=== PATIENT | male | born 1960 | race African-American/Black ===

== ENCOUNTER 2020-11-15 09:29 | Outpatient (REF) | payer OTHER, SELFPAY ==
[2020-11-15 10:01] LABS: Hemoglobin 15.1 g/dl (14.0-18.0); Mean Corpuscular HGB Conc 32.1 g/dl (31.0-36.0); Mean Corpuscular Hemoglobin 28.4 pg (27.0-33.0); Mean Corpuscular Volume 88.5 fL (80-98); Mean Platelet Volume 10.7 fL (9.4-12.4); Platelet Count 349 X10*3/uL (160-400); Red Blood Count 5.31 X10*6/uL (4.60-5.80); Red Cell Distribution Width 14.4 % (11.0-16.0); White Blood Count 11.9 X10*3/uL (4.8-10.8)
[2020-11-15 10:19] LABS: Glucose Urine UA NEG (NEG); Leukocyte Esterase Urine 1+ (NEG); Nitrite Urine NEG (NEG); Specific Gravity - Urine 1.025 (1.005-1.025); UACC Culture Trigger YES; Urine Blood 1+ (NEG); Urine Ketones NEG (NEG); Urine Protein TRACE MG/DL (NEG-TRACE)
[2020-11-15 10:22] LABS: Appearance Urine HAZY; Color Urine YELLOW
[2020-11-15 10:48] LABS: Anion Gap 16 (12-20); Blood Urea Nitrogen 13 mg/dL (9-16); Calcium 9.1 mg/dL (8.4-10.2); Carbon Dioxide 27 mmol/L (22-29); Chloride 103 mmol/L (96-108); Estimated Glomerular Filt Rate > 60; Glucose Random 137 mg/dL (60-115); Sodium 142 mmol/L (135-145)
[2020-11-15 11:06] LABS: Bacteria Urine 1+ /LPF; Mucus Urine 2+ /LPF; Squamous Epithelial Cell Urine TRACE /LPF
[2020-11-15 11:46] LABS: Prostate Specific Antigen Scr 149.95 ng/mL (<0.05-4.0)
== END 2020-11-15 09:30 | disposition home or self-care (01) ==
LOC: HO.LAB 09:29
PROVIDERS: PCP Physician Assistant; Visit Provider Physician Assistant
DX: N41.0 Acute prostatitis (principal); R30.0 Dysuria; I10 Essential (primary) hypertension; Z12.5 Encounter for screening for malignant neoplasm of prostate
CPT/HCPCS: 36415; 80048; 81001; 81003; 84153; 85027; 87086; 87088; 87186

== ENCOUNTER 2020-12-31 10:14 | Outpatient (REF) | payer OTHER, SELFPAY ==
--- NOTE | ~2020-12-31 | XR_ITS ---
EXAMINATION: XR LUMBOSACRAL SPINE CLINICAL INFORMATION: Spondylosis COMPARISON: Previous x-ray March 2018 TECHNIQUE: Three views of the lumbosacral spine. FINDINGS: Bone alignment is normal. No fracture or dislocation is seen. There is degenerative disc disease at L5-S1. There is lower lumbar spine facet arthritis. XR/XR lumbar spine 2-3V IMPRESSION: Degenerative changes.
== END 2020-12-31 10:15 | disposition home or self-care (01) ==
LOC: HO.XRAY 10:14
PROVIDERS: PCP Physician Assistant; Visit Provider Student in an Organized Health Care Education/Training Program
DX: M47.816 Spondylosis without myelopathy or radiculopathy, lumbar region (principal)
CPT/HCPCS: 72100

== ENCOUNTER → 2021-01-09 13:10 | Outpatient (BNVA) | payer OTHER, SELFPAY | PROVIDERS: PCP Physician Assistant; Visit Provider Urology | DX: N41.9 Inflammatory disease of prostate, unspecified (principal) | CPT/HCPCS: 81002; 99212 ==

== ENCOUNTER → 2021-04-18 09:58 | Outpatient (BNVA) | payer OTHER, SELFPAY | PROVIDERS: PCP Physician Assistant; Visit Provider Urology ==

== ENCOUNTER → 2021-05-24 09:35 | Outpatient (BNVA) | payer OTHER, SELFPAY | PROVIDERS: PCP Physician Assistant; Referring Provider Physician Assistant; Visit Provider Nurse Practitioner Family | DX: Z12.11 Encounter for screening for malignant neoplasm of colon (principal); K59.01 Slow transit constipation | CPT/HCPCS: 99202 ==

== ENCOUNTER 2021-06-12 07:34 | Outpatient (REF) | payer OTHER, SELFPAY ==
[2021-06-12 09:18] LABS: Hematocrit 47.9 % (42-52); Hemoglobin 15.6 g/dl (14.0-18.0); Mean Corpuscular HGB Conc 32.6 g/dl (31.0-36.0); Mean Corpuscular Hemoglobin 28.4 pg (27.0-33.0); Mean Corpuscular Volume 87.2 fL (80-98); Mean Platelet Volume 10.7 fL (9.4-12.4); Platelet Count 346 X10*3/uL (160-400); Red Blood Count 5.49 X10*6/uL (4.60-5.80); Red Cell Distribution Width 14.1 % (11.0-16.0); White Blood Count 6.3 X10*3/uL (4.8-10.8)
[2021-06-12 09:44] LABS: Alanine Aminotransferase 33 U/L (0-40); Albumin Level 4.4 g/dL (3.5-5.0); Alkaline Phosphatase 60 U/L (39-117); Anion Gap 12 (12-20); Aspartate Amino Transferase 23 U/L (5-37); Bilirubin Total 0.6 mg/dL (0.0-1.0); Blood Urea Nitrogen 12 mg/dL (9-16); Calcium 10.1 mg/dL (8.4-10.2); Carbon Dioxide 30 mmol/L (22-29); Chloride 105 mmol/L (96-108); Cholesterol 136 mg/dL; Estimated Glomerular Filt Rate > 60; Glucose Fasting 91 mg/dL (60-99); HDL Cholesterol 33 mg/dL; LDL Cholesterol Calculated 68 mg/dl; Potassium 4.9 mmol/L (3.3-5.1); Sodium 142 mmol/L (135-145); Total Protein 7.6 g/dL (6.5-8.0); Triglycerides 175 mg/dL
[2021-06-12 10:01] LABS: TSH reflex Free T4 2.48 uIU/mL (0.32-4.0)
[2021-06-12 10:07] LABS: Estimated Average Glucose 108 mg/dL; Hemoglobin A1c % 5.4 %
[2021-06-12 11:54] LABS: PSA,Total (Free>4and<10) 1.52 ng/mL (0.00-4.00)
== END 2021-06-12 07:35 | disposition home or self-care (01) ==
LOC: HO.LAB 07:34
PROVIDERS: Absent Provider Urology; PCP Physician Assistant; Visit Provider Nurse Practitioner Family
DX: Z12.5 Encounter for screening for malignant neoplasm of prostate (principal); Z13.1 Encounter for screening for diabetes mellitus; Z13.220 Encounter for screening for lipoid disorders; N13.8 Other obstructive and reflux uropathy; I10 Essential (primary) hypertension; M47.816 Spondylosis without myelopathy or radiculopathy, lumbar region; M19.011 Primary osteoarthritis, right shoulder; M19.012 Primary osteoarthritis, left shoulder
CPT/HCPCS: 36415; 80053; 80061; 83036; 84153; 84443; 85027; 99212

== ENCOUNTER → 2021-07-01 08:03 | Outpatient (BNVA) | payer OTHER, SELFPAY | PROVIDERS: PCP Physician Assistant; Visit Provider Nurse Practitioner Family ==

== ENCOUNTER 2021-08-13 11:04 | Day surgery (SDC) | payer OTHER, SELFPAY ==
[2021-08-07 11:53] VITALS: BMI 31.4
--- NOTE | 2021-08-12 09:02 | HO.ANESPROP2 ---
Documented by User: Patty Velasquez NP 08/12/21 09:03 HPI - Anesthesia Eval Consult details Narrative: 60yo M for Colonoscopy PMFSH Active Problems Active Problems: All Active Problems (Updated 08/07/21 @ 11:53 by Betsey Lowry RN) Acute prostatitis (Acute) Lumbar spondylosis (Acute) Prostatitis (Acute) Annual physical exam (Acute) Screening for hypercholesterolemia (Acute) Screening for diabetes mellitus (DM) (Acute) HLD (hyperlipidemia) (Acute) HTN (hypertension) (Acute) Colon cancer screening (Acute) Erectile dysfunction (Acute) Primary osteoarthritis, right shoulder (Acute) Primary osteoarthritis of left shoulder (Acute) Past Medical History Medical History (Updated 08/07/21 @ 11:53 by Betsey Lowry RN) Chronic prostatitis COVID-19 vaccine series completed Elevated cholesterol HTN (hypertension) Other chronic pain Primary osteoarthritis of left shoulder Primary osteoarthritis, right shoulder Skin lesion of back Family History Family History Father History of stomach cancer Mother HTN (hypertension) Diabetes mellitus Surgical History Surgical History (Updated 08/07/21 @ 11:52 by Betsey Lowry RN) Hx of colonoscopy Social History Social History Housing: House Are you a primary vocational childcare teacher to a significant other at home: No Do you presently have visiting nurse or other home services: No Alcohol intake: current Alcohol intake frequency: holidays/special occasions only Patient Tobacco Use Status: Never used Tobacco Use of substances other than those prescribed or required for medical reasons: No Have you been hit, kicked, punched, or otherwise hurt by someone within the past year? If so, by whom?: No Are you DNR?: No Advance Directives: No Advance Directives Information Provided: Yes (informational brochure mailed) Advance Directives on File: No Recently lost weight without trying: No Eating poorly because of decreased appetite: No Nutrition Risks: No Nutritional Risk Poor oral hygiene: No Current occupational status: retired Current occupation: [employer] Allergies Allergy/AdvReac Type Severity Reaction Status Date / Time No Known Allergies Allergy Verified 07/01/21 08:03 [No Known Allergies*] Exam Exam Date and Time: August 12, 2021 0902 Height,Weight and Vital Signs: Height 5 ft 11 in Weight 102.058 kg Assessment and Plan Assessment Anesthesia Assessment: Chart Reviewed Documented by User: Ariadne Arevalo MD 08/13/21 13:34 COUNTS INCLUDE 234 BEDS AT THE [facility] Past Medical History Medical History (Updated 08/07/21 @ 11:53 by Betsey Lowry RN) Chronic prostatitis COVID-19 vaccine series completed Elevated cholesterol HTN (hypertension) Other chronic pain Primary osteoarthritis of left shoulder Primary osteoarthritis, right shoulder Skin lesion of back Family History Family History Father History of stomach cancer Mother HTN (hypertension) Diabetes mellitus Family history of problems with anesthesia: Yes (Mother has slow awakening) Surgical History Surgical History (Updated 08/07/21 @ 11:52 by Betsey Lowry RN) Hx of colonoscopy History of Problems with Anesthesia: No Social History Social History Housing: House Are you a primary vocational childcare teacher to a significant other at home: No Do you presently have visiting nurse or other home services: No Alcohol intake: current Alcohol intake frequency: holidays/special occasions only Patient Tobacco Use Status: Never used Tobacco Use of substances other than those prescribed or required for medical reasons: No Have you been hit, kicked, punched, or otherwise hurt by someone within the past year? If so, by whom?: No Are you DNR?: No Advance Directives: No Advance Directives Information Provided: Yes (informational brochure mailed) Advance Directives on File: No Recently lost weight without trying: No Eating poorly because of decreased appetite: No Nutrition Risks: No Nutritional Risk Poor oral hygiene: No Current occupational status: retired Current occupation: [employer] Allergies Allergy/AdvReac Type Severity Reaction Status Date / Time No Known Allergies Allergy Verified 07/01/21 08:03 [No Known Allergies*] Exam Height,Weight and Vital Signs: Height 5 ft 11 in Weight 102.058 kg Vital Signs Temp Pulse Resp BP Pulse Ox 08/13/21 11:45 97.9 F 72 15 146/84 H 97 Airway Mallampati Class: II TM Dist: >3cm Neck ROM: Full Loose/Missing/Broken Teeth: Yes (Extractions) Heart: RRR Lungs: CTAB Assessment and Plan Assessment Anesthesia Assessment: Anesthesia Plan Discussed Final Anesthetic Review Family History of Problems with Anesthesia: Yes (Mother has slow awakening) History of Problems with Anesthesia: No NPO: Yes ASA Class: II Final Preanesthetic Review: No Changes in Pt Med Stat, Meds/Allgs Chart Reviewed, Consent Obtained/Reviewed and Anes Risks/Benef Reviewed Patient Risk: Low Procedure Risk: Low Assessment/Block/Sedation in SS: Assess/Block/Sedation-SS Anesthetic Plan Anesthetic Plan: MAC: Disposition: Standard PACU
[2021-08-13 11:45] VITALS: BP 146/84; PULSE 72; RESP 15; TEMP 36.6; O2SAT 97; BMI 31.4
--- NOTE | 2021-08-13 12:24 | MHC.SHP ---
Pre-Procedural Eval Section A Date of Service: 08/13/21 The patient is an INPATIENT: No The History & Physical has been completed within 30 days and I have reviewed it.: No Section B Chief Complaint: screening Details of Present Illness: Colon cancer screen Relevant Family History (Specify if Yes): Yes Relevant Social History: None Present Medications: see Short Stay Collaborative assessment Medical History: Significant History (Chronic prostatitis Other chronic pain Primary osteoarthritis of left shoulder Primary osteoarthritis, right shoulder Skin lesion of back) History of Previous Operations: Relevant previous surgery/procedure and date(s) (History of colonoscopy) Allergies: Allergies Allergy/AdvReac Type Severity Reaction Status Date / Time No Known Allergies Allergy Verified 07/01/21 08:03 [No Known Allergies*] Review of Systems Sugical H&P ROS: Negative: Constitution, Cardiovascular, Respiratory and Gastrointestinal Exam Surgical H&P Exam: Normal: Heart, Normal: Lungs, Normal: Extremities and Normal: Abdomen Plan Diagnosis/Plan: Unchanged I have reviewed the history and physical and performed a pertinent physical examination on my patient. No changes have occurred unless specified.
[2021-08-13] MEDS: Lactated Ringers 1,000 ML 100 ML IVCONT (12:30)
[2021-08-13] MEDS: Sodium Phosphate,Mono-Dibasic 133 ML ENEMA PR (12:55)
--- NOTE | 2021-08-13 13:24 | PC.NURSE ---
pt admittesd to eating sandwich at 1000 yesterday. fleets ordered and given at 1255. at 1302, large amount yellow liquid results
--- NOTE | 2021-08-13 13:42 | P.OP_ITS ---
Operative Note Operative Note Date of Service: 08/13/21 Narrative: Pre-op diagnosis:?colon cancer screening Post-op diagnosis:?other (Colon polyps, diverticulosis, hemorrhoids) Procedure:? COLONOSCOPY TILL CECUM WITH BIOPSIES Consent: Indications for the procedure and potential complications of bleeding, perforation, reaction to medications and missed diagnosis were discussed with the patient and informed consent was obtained. Instrument: Olympus PCF H 190 L variable stiffness pediatric colonoscope Monitoring: Vital signs and clinical assessment, intermittent blood pressure monitoring, continuous EKG monitoring, Pulse oximetry and Carbon Dioxide monitoring were done throughout the procedure. Colon withdrawl time was 22 minutes. Procedure: The patient was placed in the left lateral decubitis position and pre-procedure medications were administered. After a digital rectal examination of the ano-rectum, the video colonoscope was inserted into the rectum and advanced through the colon to the cecum. The colonoscope was slowly withdrawn in a retrograde panoramic fashion and the colon mucosa was carefully examined including a retroflexed view of the rectum. Findings and interventions are described below. Procedure Difficulty: Without difficulty Findings: Terminal Ileum: Not evaluated Cecum:? A 2-3 mm sessile polyp removed with a cold bx Ascending Colon:? Normal Transverse Colon:? A 7-8 mm diminutive appearing polyp removed with a cold bx Descending Colon:? Moderate diverticulosis Sigmoid Colon:? Moderate diverticulosis Rectum:? Normal Ano-rectum:? Moderate internal hemorrhoids Colon preparation:? Good after some irrigation Impression and Post Procedure Diagnosis: Colonoscopy Findings: Two small polyps removed Moderate diverticulosis seen in the left colon Moderate hemorrhoids on retroflexed exam. Plan: Await pathology results Patient has an appointment on 08/28/21 in the GI Clinic with ? Carolina Ocampo FNP-[facility] . Repeat Colonoscopy interval based on path results - in 5 years if polyps are adenomatous and 10 years if polyps are hyperplastic. Above findings were reviewed with the patient and colon polyps and diverticulosis handouts were given in the discharge area Surgeon:?Avinash Zarate MD Anesthesia:?MAC Was an Architectural Technician used for this Procedure?:?Yes Architectural Technician:?Yoly Gutierrez Estimated blood loss (mL):?0 Pathology:?other (A. cecal polyp? B. transverse colon polyp) Condition:?stable Disposition:?PACU
[2021-08-13 14:20] VITALS: BP 89/56; PULSE 65; RESP 16; TEMP 36.1; O2SAT 98
[2021-08-13 14:34] VITALS: BP 107/65; PULSE 79; RESP 16; O2SAT 98
[2021-08-13 14:50] VITALS: BP 135/81; PULSE 79; RESP 16; TEMP 36.1; O2SAT 98
== END 2021-08-13 15:42 | disposition home or self-care (01) ==
PROVIDERS: PCP Physician Assistant; Visit Provider Internal Medicine Gastroenterology
PROC: 0DJD8ZZ Inspection of Lower Intestinal Tract, Via Natural or Artificial Opening Endoscopic (ICD-10-PCS; CPT 45378; principal; 2021-08-13 12:30)
DX: Z12.11 Encounter for screening for malignant neoplasm of colon (principal); D12.0 Benign neoplasm of cecum; K63.5 Polyp of colon; K57.30 Diverticulosis of large intestine without perforation or abscess without bleeding; K64.8 Other hemorrhoids; K59.01 Slow transit constipation; I10 Essential (primary) hypertension; G89.29 Other chronic pain; M19.012 Primary osteoarthritis, left shoulder; M19.011 Primary osteoarthritis, right shoulder; Z79.899 Other long term (current) drug therapy
CPT/HCPCS: 45380; 88305

== ENCOUNTER 2021-08-22 08:00 | Outpatient (RCR) | payer OTHER, SELFPAY ==
--- NOTE | 2021-07-09 09:00 | MHC.PT.EP ---
[facility] [place] Office [place] Office [place] Office [address] Roula Forman [address] [phone] F: [phone] F: [phone] F: [phone] F: [phone] Physical Therapy Plan of Care Date of Evaluation: Date of Surgery: Diagnosis: This is a 60 yo male presenting to skilled PT with a script for B shoulder OA, lumbar spondylitis. Assessment: This is a 60 yo male presenting to skilled PT with a script for B shoulder OA, lumbar spondylitis. Patient reporting pain began in 2016 when he was working. Pain began in the R shoulder and when he stopped working pain increased in the L shoulder and back. He is RHD. Both shoulders are equal in terms of pain. Shoulder pain is located at the BUT's and described as sharp. Pain in the shoulders increases with reaching, lifting, pulling, pushing, general housework. Lumbar pain is across the low back and is felt in all positions so that he feels like he needs to continue to change positions. This pain is also described as sharp. Assessment reveals pain that ranges up to an 8/10. He demos decreased lumbar and cervical ROM, decreased gross UB/LB and core strength, impaired joint mobility with hypomobility and pain with PA mobs as well as gross functional decline with housework and prolonged resting postures. Patient lives sedentary lifestyle and would benefit from a general conditioning program He is a good candidate for skilled PT 2x/wk for 5wks. Frequency and Duration: The patient will be seen 2x/wk for 5wks Short Term Goals: I in HEP Demo proper core stab/TrA without PT cuing Demo proper squatting and lifting techniques without cuing or pain Snf Goals: Demo at least 4+/5 UB and LB strength Demo normal cervical and hip ROM without pain Report no more than 2/10 pain at the worst after therapy session Treatment Plan: Modalities to reduce pain, spasms and effusion. Manual therapy to restore motion and function. Therapeutic exercise to improve strength and flexibility. Neuromuscular re-education for posture and balance. Therapeutic activities to return to functional activities of daily living. Electronically signed by: Darline Willis, PT Please sign and return to therapist. Thank you for your referral.
--- NOTE | 2021-09-25 13:04 | MHC.PT.DC ---
[facility] [place] Office [place] Office [place] Office [address] Roula Forman [address] [phone] F: [phone] F: [phone] F: [phone] F: [phone] Physical Therapy Discharge Report Diagnosis: This is a 60 yo male presenting to skilled PT with a script for B shoulder OA, lumbar spondylitis. Date of Surgery: Date of Evaluation: 07/09/21 Date of Discharge: 09/25/21 Treatments to Date: 11 Cancellations to Date: 0 No Shows to Date: 1 Discharge Status: Achieved Goals Improved Function Independent with HEP Discharge Summary: 09/05: Called patient as he missed his appointment to offer another time, he is unable to do so due to fixing water heater and needs to be home. Educated him on the PT POC. He reports that he has not had any pain since not being here in over 2 weeks. I educated him on how therapy works, how he needs to continue his HEP in order to maintain his gains and if pain returns after a month of doing HEP on own at home than to call MD for a new referral. He would like a script for a home tens unit to use along with his HEP. No pain noted, normal ROM and strength as well as functional mobility. DC to HEP at this time. Pt progressing with exs. no c/o pain after hip strengthening. Electronically signed by: Darline Willis PT Please sign and return to therapist. Thank you for your referral.
== END 2021-09-25 13:04 | disposition home or self-care (01) ==
LOC: HO.PTCHIC 08:00
PROVIDERS: PCP Physician Assistant; Visit Provider Nurse Practitioner Family
DX: M19.012 Primary osteoarthritis, left shoulder (principal); M19.011 Primary osteoarthritis, right shoulder; M47.816 Spondylosis without myelopathy or radiculopathy, lumbar region
CPT/HCPCS: 97014; 97110; 97140; 97162

== ENCOUNTER 2021-08-28 10:43 | Outpatient (REF) | payer OTHER, SELFPAY ==
[2021-08-29 15:23] LABS: H Pylori Breath Test Positive (Negative)
== END 2021-08-28 10:44 | disposition home or self-care (01) ==
LOC: HO.LNP 10:43
PROVIDERS: PCP Physician Assistant; Referring Provider Physician Assistant; Visit Provider Nurse Practitioner Family
DX: K21.9 Gastro-esophageal reflux disease without esophagitis (principal); D36.9 Benign neoplasm, unspecified site; K59.01 Slow transit constipation; K57.90 Diverticulosis of intestine, part unspecified, without perforation or abscess without bleeding; Z98.890 Other specified postprocedural states
CPT/HCPCS: 83013; 99212

== ENCOUNTER → 2021-10-22 09:54 | Outpatient (BNVA) | payer OTHER, SELFPAY | PROVIDERS: PCP Physician Assistant; Visit Provider Urology | DX: N52.9 Male erectile dysfunction, unspecified (principal); N41.1 Chronic prostatitis | CPT/HCPCS: 99212 ==

== ENCOUNTER 2021-10-28 08:58 | Outpatient (REF) | payer OTHER, SELFPAY ==
[2021-10-29 14:29] LABS: H Pylori Breath Test Negative (Negative)
== END 2021-10-28 08:59 | disposition home or self-care (01) ==
LOC: HO.LNP 08:58
PROVIDERS: PCP Physician Assistant; Referring Provider Physician Assistant; Visit Provider Nurse Practitioner Family
DX: K21.9 Gastro-esophageal reflux disease without esophagitis (principal); K59.01 Slow transit constipation; A04.8 Other specified bacterial intestinal infections; R14.0 Abdominal distension (gaseous)
CPT/HCPCS: 83013; 99212

== ENCOUNTER → 2022-02-25 08:59 | Outpatient (BNVA) | payer OTHER, SELFPAY | PROVIDERS: PCP Physician Assistant; Referring Provider Physician Assistant; Visit Provider Nurse Practitioner Family | DX: K21.9 Gastro-esophageal reflux disease without esophagitis (principal); K59.01 Slow transit constipation; R14.0 Abdominal distension (gaseous) | CPT/HCPCS: 99212 ==

== ENCOUNTER → 2022-05-27 07:55 | Outpatient (BNVA) | payer OTHER, SELFPAY | PROVIDERS: PCP Physician Assistant; Referring Provider Physician Assistant; Visit Provider Nurse Practitioner Family | DX: K59.01 Slow transit constipation (principal); K21.9 Gastro-esophageal reflux disease without esophagitis; R14.0 Abdominal distension (gaseous) | CPT/HCPCS: 99212 ==

== ENCOUNTER → 2022-08-05 09:20 | Outpatient (BNVA) | payer OTHER, SELFPAY | PROVIDERS: PCP Physician Assistant; Visit Provider Nurse Practitioner Family | DX: M19.011 Primary osteoarthritis, right shoulder (principal); M19.012 Primary osteoarthritis, left shoulder; M25.562 Pain in left knee; M47.816 Spondylosis without myelopathy or radiculopathy, lumbar region | CPT/HCPCS: 99212 ==

== ENCOUNTER 2022-08-06 10:23 | Outpatient (REF) | payer OTHER, SELFPAY ==
--- NOTE | ~2022-08-06 | XR_ITS ---
EXAMINATION: XR KNEE, LEFT CLINICAL INFORMATION: Left knee pain. COMPARISON: None TECHNIQUE: Four views of the left knee. FINDINGS: Mild medial femoral-tibial joint space narrowing is seen with minimal marginal osteophyte formation. There is no acute fracture, dislocation or joint effusion. The soft tissues are unremarkable. XR/XR knee LT 4V IMPRESSION: Mild medial femoral-tibial degenerative joint changes. No acute abnormality.
== END 2022-08-06 10:24 | disposition home or self-care (01) ==
LOC: HO.HMGCX 10:23
PROVIDERS: PCP Physician Assistant; Visit Provider Nurse Practitioner Family
DX: M25.562 Pain in left knee (principal)
CPT/HCPCS: 73564

== ENCOUNTER 2022-09-19 08:00 | Outpatient (REF) | payer OTHER, SELFPAY ==
--- NOTE | ~2022-09-19 | US_ITS ---
EXAMINATION: US RETROPERITONEAL LIMITED (RENAL ONLY) CLINICAL INFORMATION: Calculus of kidney. COMPARISON: Previous CT of the abdomen and pelvis from 2011 TECHNIQUE: Real-time imaging of the kidneys. FINDINGS: RIGHT KIDNEY: 10.7 x 5.0 x 6.0 cm (SAG x AP x TRV). The kidney is normal in size, contour, and echogenicity. Renal cortical thickness is normal. There is a 1 cm cyst in the lower pole. No renal calculi or hydronephrosis. LEFT KIDNEY: 11.4 x 6.5 x 6.1 cm (SAG x AP x TRV). The kidney is normal in size, contour, and echogenicity. Renal cortical thickness is normal. No calculi or focal parenchymal lesions. No hydronephrosis. Liver echotexture is increased. US/US renal BI IMPRESSION: Small right renal cyst. No stone seen.
== END 2022-09-19 08:01 | disposition home or self-care (01) ==
LOC: HO.HMGCX 08:00
PROVIDERS: PCP Physician Assistant; Visit Provider Urology
DX: N20.0 Calculus of kidney (principal)
CPT/HCPCS: 76775

== ENCOUNTER → 2022-10-23 13:43 | Outpatient (BNVA) | payer OTHER, SELFPAY | PROVIDERS: PCP Physician Assistant; Visit Provider Urology | DX: Z13.89 Encounter for screening for other disorder (principal) ==

== ENCOUNTER 2023-01-29 08:11 | Outpatient (REF) | payer OTHER, SELFPAY ==
--- NOTE | ~2023-01-29 | US_ITS ---
EXAMINATION: US RETROPERITONEAL LIMITED (RENAL ONLY) CLINICAL INFORMATION: Calculus of kidney. COMPARISON: Bilateral renal ultrasound dated 09/19/2022. CT abdomen and pelvis without contrast dated 01/21/2011. TECHNIQUE: Real-time imaging of the kidneys. FINDINGS: RIGHT KIDNEY: 12.6 x 5.4 x 6.7 cm (SAG x AP x TRV). The kidney is normal in size, contour, and echogenicity. Renal cortical thickness is normal. No renal calculi or hydronephrosis. Upper pole, a 1.3 cm benign, simple cyst is seen. At the lower pole, a 1.2 cm benign, simple cyst is seen. LEFT KIDNEY: 12.0 x 6.4 x 5.3 cm (SAG x AP x TRV). The kidney is normal in size, contour, and echogenicity. Renal cortical thickness is normal. No calculi or focal parenchymal lesions. No hydronephrosis. US/US renal BI IMPRESSION: 1. No renal calculus or obstruction is seen. 2. Benign, simple right renal cysts are seen, as detailed. These require no imaging follow-up.
== END 2023-01-29 08:12 | disposition home or self-care (01) ==
LOC: HO.HMGCX 08:11
PROVIDERS: PCP Physician Assistant; Visit Provider Urology
DX: N20.0 Calculus of kidney (principal)
CPT/HCPCS: 76775

== ENCOUNTER → 2023-02-20 15:08 | Outpatient (BNVA) | payer OTHER, SELFPAY | PROVIDERS: PCP Physician Assistant; Visit Provider Urology | DX: N52.9 Male erectile dysfunction, unspecified (principal); N20.0 Calculus of kidney; N41.1 Chronic prostatitis | CPT/HCPCS: 99212 ==

== ENCOUNTER 2023-03-26 09:00 | Outpatient (REF) | payer OTHER, SELFPAY ==
--- NOTE | ~2023-03-26 | XR_ITS ---
EXAMINATION: XR KNEE, LEFT CLINICAL INFORMATION: Osteoarthritis COMPARISON: Previous x-ray July 2022 TECHNIQUE: Three views of the left knee. FINDINGS: Bone alignment is normal. No fracture or dislocation. Mild degenerative changes at the patellofemoral and medial femoral tibial joints with small osteophytes. Small osteophyte at the quadriceps tendon insertion to the patella. No joint effusion. XR/XR knee LT 3V IMPRESSION: Mild degenerative changes.
[2023-03-26 11:58] LABS: Hematocrit 49.6 % (42.0-52.0); Mean Corpuscular HGB Conc 32.3 g/dl (31.0-36.0); Mean Corpuscular Hemoglobin 28.5 pg (27.0-33.0); Mean Corpuscular Volume 88.3 fL (80.0-98.0); Mean Platelet Volume 11.2 fL (9.4-12.4); Platelet Count 327 X10*3/uL (160-400); Red Blood Count 5.62 X10*6/uL (4.60-5.80); Red Cell Distribution Width 14.3 % (11.0-16.0); White Blood Count 6.3 X10*3/uL (4.8-10.8)
[2023-03-26 12:15] LABS: Alanine Aminotransferase 47 U/L (0-40); Albumin Level 4.3 g/dL (3.5-5.0); Alkaline Phosphatase 63 U/L (39-117); Anion Gap 12 (12-20); Aspartate Amino Transferase 27 U/L (5-37); Bilirubin Total 0.7 mg/dL (0.0-1.0); Blood Urea Nitrogen 9 mg/dL (9-16); Calcium 9.7 mg/dL (8.4-10.2); Carbon Dioxide 27 mmol/L (22-29); Chloride 107 mmol/L (96-108); Cholesterol 144 mg/dL; Estimated Glomerular Filt Rate > 60; Glucose Fasting 89 mg/dL (60-99); HDL Cholesterol 37 mg/dL; LDL Cholesterol Calculated 75 mg/dl; Sodium 142 mmol/L (135-145); Total Protein 7.6 g/dL (6.5-8.0); Triglycerides 163 mg/dL
[2023-03-26 12:22] LABS: Prostate Specific Antigen Scr 1.31 ng/mL (<0.05-4.0); TSH reflex Free T4 2.34 uIU/mL (0.32-4.0)
[2023-03-30 14:23] LABS: Calcium (PTHI) 9.8 mg/dL (8.6-10.3); PTHI 61 pg/mL (16-77)
== END 2023-03-26 09:01 | disposition home or self-care (01) ==
LOC: HO.HMGCX 09:00
PROVIDERS: PCP Physician Assistant; Visit Provider Physician Assistant
DX: Z12.5 Encounter for screening for malignant neoplasm of prostate (principal); M17.12 Unilateral primary osteoarthritis, left knee; E78.2 Mixed hyperlipidemia; N41.1 Chronic prostatitis; N20.0 Calculus of kidney; I10 Essential (primary) hypertension
CPT/HCPCS: 36415; 73562; 80053; 80061; 83970; 84153; 84443; 85027

== ENCOUNTER 2023-03-30 08:38 | Outpatient (REF) | payer OTHER, SELFPAY ==
[2023-03-30 12:13] LABS: Creatinine Urine 268.46 mg/dL; Microalbum/Creatinine Ratio Ur 5.5 ug/mg cr
== END 2023-03-30 08:39 | disposition home or self-care (01) ==
LOC: HO.HMGCLNP 08:38
PROVIDERS: PCP Physician Assistant; Visit Provider Physician Assistant
DX: I10 Essential (primary) hypertension (principal)
CPT/HCPCS: 82043

== ENCOUNTER 2023-05-01 11:22 | Outpatient (REF) | payer OTHER, SELFPAY | END 2023-05-01 11:23 | disposition home or self-care (01) | LOC: HO.HOSX 11:22 | PROVIDERS: Visit Provider Physician Assistant | DX: Z13.89 Encounter for screening for other disorder (principal) ==

== ENCOUNTER 2023-05-26 08:11 | Outpatient (AMB) | payer OTHER, SELFPAY ==
[2023-05-26 08:17] VITALS: BP 133/78; PULSE 79; BMI 30.6
--- NOTE | 2023-05-26 08:17 | A.OFFVIS_ITS ---
Intake Vital Signs 05/26/23 08:17 Height 5 ft 11 in Weight 219 lb 2.232 oz BMI 30.6 BP 133/78 Blood Pressure Location Lt brachial Position Sitting Pulse 79 Intake Visit Reasons: 1 year follow up Intake Note: Juan C presents in office as a est.patient for a 1 year follow up for constipation PT CC: pt reports having constipation, black stool pt denies any other GI Issues Beam Department Supervisor Required: No Accompanied by: Self / Same As Patient Allergies No Known Allergies [No Known Allergies*] Allergy (Verified 05/26/23 08:17) HPI 1 year follow up HPI Details LAST VISIT: Abdominal bloating Occasional postprandial abdominal bloating. Patient was encouraged to avoid dietary triggers. Discussed with him FODMAP diet and list of food recommended as well as list of food to avoid given to patient. Constipation Patient reports that he was taking Citrucel and Senokot and was doing very well stop taking Citrucel and his bowel movements got better on its own. Now occasionally he feels like he does not empty completely. I will start him on MiraLax patient was in courage to take it daily so he can feel like he empties his bowels completely. I will see him Plan Medications New polyethylene glycol 3350 (Miralax) 17 grams PO DAILY 510 grams 2RF Discontinued methylcellulose (laxative) take it with full glass of water Discontinued Reason: Doctor's Order 500 mg PO DAILY 90 tabs 2RF K59.00 sennosides Discontinued Reason: Patient no longer taking 8.6 mg PO BEDTIME 90 tabs 3RF constipation K59.00 TODAY'S VISIT: Follow-up. Patient reports that he continues to have constipation. Tried taking Senokot and it costs too much diarrhea so patient stopped. Patient reports that when he was away in [facility] he was sick with fever and he was drinking water with eyes. Came back home and had abdominal pain black stool no diarrhea. Symptoms went away after a couple weeks. Patient denies any melena, hematochezia, unintentional weight loss or ribbon like stools. Patient denies any dyspepsia, dysphagia or odynophagia. Occasional acid reflux depending on what he eats. Patient reports that he experiences less abdominal bloating. Depending on what he eats. Patient denies any other GI concerning symptoms [facility] Medical History Chronic prostatitis COVID-19 vaccine series completed Elevated cholesterol HTN (hypertension) Other chronic pain Primary osteoarthritis of left shoulder Primary osteoarthritis, right shoulder Skin lesion of back Tubular adenoma Surgical History Hx of colonoscopy Family History Father History of stomach cancer Mother HTN (hypertension) Diabetes mellitus Social History Housing: House Are you a primary school child care attendant to a significant other at home: No Do you presently have visiting nurse or other home services: No Alcohol intake: current Alcohol intake frequency: holidays/special occasions only Patient Tobacco Use Status: Never used Tobacco e-Cigarette/Vaping Use: Never Used Second Hand Smoke Exposure: No service: No Current occupational status: retired 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 Cognitive needs: No Hearing needs: No Vision needs: No Review of Systems Const Denies weight gain and Denies weight loss ENT Reports no additional complaints, Denies dysphagia and Denies odynophagia Card Reports no additional complaints Resp Reports no additional complaints GI Reports abdominal pain, Denies belching, Denies melena, Denies bloating, Denies change in bowel habits, Reports constipation, Denies dysphagia, Denies excessive flatus, Denies dyspepsia, Denies heartburn, Denies diarrhea, Denies loose s tools, Denies nausea, Denies odynophagia, Denies vomiting and Reports other (black) Reports no additional complaints Musc Reports no additional complaints Neuro Reports no additional complaints Psych Reports no additional complaints Endo Reports no additional complaints Physical Exam Vital Signs: Last Vital Signs Pulse 79 05/26/23 08:17 BP 133/78 05/26/23 08:17 BMI result Body Mass Index 30.6 Const General: healthy appearing, no acute distress and well developed Nutritional Appearance: obese Orientation/consciousness: patient oriented x3 HEENT Head: Yes normal to inspection, Yes normocephalic and Yes atraumatic Face and sinus: Yes normal facial exam Mouth: Normal oral and palatal mucosa present Throat: Yes posterior oropharynx normal, Yes tonsils normal and Yes uvula midline Eyes General: appearance normal, both eyes and all related structures Neck Neck: Yes normal visual inspection, Yes full ROM and Yes trachea midline Thyroid: Thyroid normal Resp Effort & Inspection: normal respiratory effort, able to speak in complete sentences, no tracheal deviation and symmetric chest movement Auscultation: clear to auscultation bilaterally Cardio Rate: regular rate Heart sounds: S1 normal heart sound present and S2 normal heart sound present GI Inspection: Yes normal to inspection and No distended Palpation (GI): Soft to palpation, not firm, nontender and No hepatosplenomegaly present Auscultation: normal bowel sounds General: Yes no CVA tenderness Back/Spine/Pelvis Back: no CVA tenderness Skin General skin exam: elasticity normal, turgor normal and dry skin Neuro General: patient oriented x3 Psych Appearance: grossly normal Mental Status: mental status grossly normal Speech and movement: Normal speech and movement present Assessment & Plan Assessment & Plan (1) Abdominal bloating: Code(s): R14.0 - Abdominal distension (gaseous) Plan: Postprandial abdominal bloating depending on what food that he eats. Discussed with patient all FODMAP diet. List of food recommended as well as list of food to avoid given to patient. (2) Constipation: Code(s): K59.00 - Constipation, unspecified Qualifiers: Constipation type: slow transit constipation Qualified Code(s): K59.01 - Slow transit constipation Plan: Patient continues to be constipated. Will send patient script for MiraLax to take daily. Patient was encouraged also to increase fluid intake and activity to promote better bowel motility. (3) GERD (gastroesophageal reflux disease): Code(s): K21.9 - Gastro-esophageal reflux disease without esophagitis Qualifiers: Esophagitis presence: esophagitis presence not specified Qualified Code(s): K21.9 - Gastro-esophageal reflux disease without esophagitis Plan: Patient reports occasional acid reflux depending on what he eats. Patient states that it only happens couple times a week. Will send patient script for Pepcid and he can take it on as needed basis. Patient will follow-up with us when 1 year, sooner on as needed basis. Patient is agreeable to this plan and verbalizes understanding of instructions. He was given the opportunity to ask questions and all questions answered. Thank you for allowing me to participate in his care Medications: New famotidine (Pepcid) 20 mg PO DAILY 30 tabs 3RF K21.9 - Gastro-esophageal reflux disease without esophagitis polyethylene glycol 3350 (Miralax) 17 grams PO DAILY 510 grams 2RF Coding Level of Care Code Est Pt Level 3 (84366) Diagnoses Abdominal bloating R14.0 Constipation K59.01 Constipation type: slow transit constipation GERD (gastroesophageal reflux disease) K21.9 Esophagitis presence: esophagitis presence not specified Time Spent (min) 25 Comment 15 minutes spent with patient and additional 10 minutes spent reviewing his records
== END 2023-05-26 08:52 | disposition home or self-care (01) ==
PROVIDERS: Visit Provider Nurse Practitioner Family
DX: R14.0 Abdominal distension (gaseous) (principal); K59.01 Slow transit constipation; K21.9 Gastro-esophageal reflux disease without esophagitis
CPT/HCPCS: 99213

== ENCOUNTER → 2023-05-26 08:11 | Outpatient (BNVA) | payer OTHER, SELFPAY | PROVIDERS: Visit Provider Nurse Practitioner Family | DX: K21.9 Gastro-esophageal reflux disease without esophagitis (principal); K59.01 Slow transit constipation; R14.0 Abdominal distension (gaseous) | CPT/HCPCS: 99212 ==

== ENCOUNTER 2023-06-16 07:45 | Outpatient (AMB) | payer SELFPAY ==
--- NOTE | 2023-06-16 08:07 | MHC.OFFVIS ---
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 Patient reports having ongoing pain for 7 years. No hx of injections. No hx of PT. He states that his pain is on the lateral aspect of the knee. Patient states that his pain is sensitive to touch. He has tried Tylenol and diclofenac which gave him minimal relief. He denies any locking or giving way. He denies any fevers or chills. The patient states that at his former job he did do quite a bit of kneeling on his left knee. Allergies No Known Allergies [No Known Allergies*] Allergy (Verified 06/16/23 08:10) Medication List - Last Reconciled 06/16/23 by Brian Morrison MD acetaminophen ER (Tylenol Arthritis Pain) 650 mg PO Q12H PRN diclofenac sodium 75 mg PO BID 15 days famotidine (Pepcid) 20 mg PO DAILY losartan 50 mg PO DAILY methylprednisolone (Medrol (Carlyle)) PO PER PKG DIR polyethylene glycol 3350 (Miralax) 17 grams PO DAILY sildenafil 100 mg PO DAILY PRN 30 days simvastatin 40 mg PO QPM 90 days PFSH Medical History Chronic prostatitis COVID-19 vaccine series completed Elevated cholesterol HTN (hypertension) Other chronic pain Primary osteoarthritis of left shoulder Primary osteoarthritis, right shoulder Skin lesion of back Tubular adenoma Surgical History Hx of colonoscopy Family History Father History of stomach cancer Mother HTN (hypertension) Diabetes mellitus Social History Housing: House Are you a primary patient care to a significant other at home: No Do you presently have visiting nurse or other home services: No Alcohol intake: current Alcohol intake frequency: holidays/special occasions only Patient Tobacco Use Status: Never used Tobacco e-Cigarette/Vaping Use: Never Used Second Hand Smoke Exposure: No service: No Current occupational status: retired 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 Cognitive needs: No Hearing needs: No Vision needs: No Physical Exam Vital Signs: BMI result Body Mass Index 30.5 Const Other: Well-nourished well-developed very friendly male awake alert and oriented x3 in no acute distress Extrem Other: Bilateral lower extremity examination shows good capillary refill, no skin lesions noted, normal sensation light touch Left knee examination shows a minimal effusion, minimal crepitus with range of motion, tenderness along his lateral joint line, positive Benjamín's test, tenderness along his patellar tendon, no overlying skin lesions, no significant bursa swelling Results Reviewed Results Reviewed: X-rays of the patient's left knee taken today show minimal diffuse joint space narrowing, no acute bony abnormalities Assessment & Plan Assessment & Plan (1) Left knee pain: Code(s): M25.562 - Pain in left knee Plan: Mr. Guidry presents with left knee pain is likely due to prepatellar bursitis versus possible tearing of his lateral meniscus. I had a lengthy discussion with the patient regarding the treatment options. I did give him a prescription for a Medrol Dosepak. I will also switch him from diclofenac to Celebrex following the Medrol Dosepak. He will follow up with me on an as-needed basis should his symptoms not plateau at an unacceptable level over the next few weeks. Feel free to call me at any time should questions regarding his orthopedic management arise. Thank you very much for asking me to see this very friendly gentleman. I spent 22 minutes in reviewing the patient's records and imaging studies, seeing the patient and documenting in the medical record. Medications: New methylprednisolone (Medrol (Carlyle)) PO PER PKG DIR 21 ea 0RF celecoxib (Celebrex) The patient is instructed to begin the Celebrex after he has completed the Medrol Dosepak. He will take the Celebrex instead of taking the diclofenac. 200 mg PO DAILY 30 caps 3RF Coding Level of Care Code New Pt Level 2 (75580) Diagnoses Left knee pain M25.562
[2023-06-16 08:10] VITALS: BMI 30.5
== END 2023-06-16 08:35 | disposition home or self-care (01) ==
PROVIDERS: PCP Physician Assistant; Visit Provider Orthopaedic Surgery
DX: M25.562 Pain in left knee (principal)
CPT/HCPCS: 99202

== ENCOUNTER → 2023-06-16 07:45 | Outpatient (BNVA) | payer OTHER, SELFPAY | PROVIDERS: PCP Physician Assistant; Visit Provider Orthopaedic Surgery ==

== ENCOUNTER 2023-10-22 08:28 | Outpatient (AMB) | payer OTHER, SELFPAY ==
[2023-10-22 08:49] VITALS: BP 150/98; PULSE 67; O2SAT 98; BMI 31.4
--- NOTE | 2023-10-22 08:49 | MHC.PC.OV ---
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 Patient has a past medical history significant for ? Hypertension, hyperlipidemia, recurrent prostatitis lumbar spondylosis. Concerns> has been dealing with depression anxiety due to going through a divorce. Has gained weight due to his poor eating habits at night. He is now interested in mental health therapy in starting medication for his depression. Also concerned about hyperpigmented rash over his back. Has seen a senior business development analyst was told does age related. Does appear to be separate keratosis and advised to treat conservatively. ,, ?hypertension: Blood pressure slightly elevated today in office, he reports he has not taken his blood pressure medication today. Otherwise denies any headaches, chest pains, shortness of breath. PLAN: Will do diligent blood pressure monitoring at home and if consistently above 140/90 will consider increasing his losartan dose .. ? Hyperlipidemia: lipid panels have been stable, has no side effect from statin therapy.? Will continue to follow lipid panel. Laboratory Tests 03/26/23 09:25 RBC 5.62 Creatinine 1.10 Cholesterol 144 PSA Screen 1.31 [facility] 2.34 [facility] Medical History Tubular adenoma COVID-19 vaccine series completed Elevated cholesterol HTN (hypertension) Chronic prostatitis Primary osteoarthritis of left shoulder Primary osteoarthritis, right shoulder Other chronic pain Skin lesion of back Surgical History Hx of colonoscopy Family History Father History of stomach cancer Mother HTN (hypertension) Diabetes mellitus Social History Housing: House Are you a primary residential caregiver to a significant other at home: No Do you presently have visiting nurse or other home services: No Alcohol intake: current Alcohol intake frequency: holidays/special occasions only Patient Tobacco Use Status: Never used Tobacco e-Cigarette/Vaping Use: Never Used Second Hand Smoke Exposure: No service: No Current occupational status: retired 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 Cognitive needs: No Hearing needs: No Vision needs: No Questionnaire PHQ-9 Over the last 2 weeks, how often have you been bothered by any of the following problems? 1. Little interest or pleasure in doing things: not at all 2. Feeling down, depressed, or hopeless: several days 3. Trouble falling or staying asleep, or sleeping too much: more than half the days 4. Feeling tired or having little energy: more than half the days 5. Poor appetite or overeating: not at all 6. Feeling bad about yourself - or that you are a failure or have let yourself or your family down: more than half the days 7. Trouble concentrating on things, such as reading the newspaper or watching television: not at all 8. Moving or speaking so slowly that other people could have noticed. Or the opposite - being so fidgety or restless that you have been moving around a lot more than usual: nearly every day 9. Thoughts that you would be better off or of hurting yourself in some way: not at all Total score: 10 Depression Screening Interpretation: Positive Depression Screening Done: Yes 76400 - PHQ-9 Billing: Yes Source: Developed by Drs. Chris Mejia, Lisa Cottrell, El Conley and colleagues, with an educational chris from [employer]. Thrive Questionnaire Date Thrive assessed: 10/22/23 I am a: Patient What is your living situation today?: I have a steady place to live Within the past 12 months, did the food you bought not last and you didn't have the money to get more?: Never true Within the past 12 months, did you worry whether your food would run out before you got money to buy more?: Never true Do you have trouble paying for medicines?: No Do you have trouble getting transportation to medical appointments?: No Do you have trouble paying your heating and electricity bill?: No Do you have trouble taking care of your child, family member or friend?: No Do you have trouble with day-to-day activities such as bathing, preparing meals, shopping, managing finances, etc.?: No Are you currently unemployed and looking for a job?: No Are you interested in more education?: No Please select the resources that you would like help with: None YOUSUF-7 AMB Questionnaire YOUSUF-7 Date YOUSUF - 7 assessed: 10/22/23 Feeling nervous, anxious, or on edge: 2 = More than half the days Not being able to stop or control worryin = Several days Worrying too much about different things: 3 = Nearly every day Trouble relaxin = More than half the days Being so restless that it is hard to sit still: 2 = More than half the days Becoming easily annoyed or irritable: 2 = More than half the days Feeling afraid as if something awful might happen: 0 = Not at all Total YOUSUF-7 score (0-4 normal; 5-9 mild; 10-14 moderate; 15-21 severe): 12 Source: Developed by Drs. Chris Mejia, Lisa Cottrell, El Conley and colleagues, with an educational chris from [employer]. YOUSUF-7 Assessment Billing YOUSUF-7 Assessment Tool: YOUSUF-7 Assessment 39688 Review of Systems Const Denies headache(s) Eyes Denies loss of vision ENT Denies vertigo, Denies dizziness, Denies headache(s) and Denies sore throat Card Denies chest pain, Denies leg edema and Denies lightheadedness Resp Denies cough, Denies hemoptysis and Denies wheezing GI Denies abdominal pain, Denies melena, Denies constipation, Denies diarrhea and Denies vomiting Denies dysuria, Denies urinary frequency and Denies urinary urgency Musc Denies arthralgias, Denies joint swelling, Denies numbness and Denies tingling Neuro Denies Abnormal speech present, Denies behavioral changes, Denies vertigo, Denies dizziness, Denies headache(s), Denies loss of vision, Denies memory loss, Denies numbness and Denies tingling Psych Denies anxiety, Denies behavioral changes, Denies depression, Denies memory loss and Denies panic attacks Campos/Lymph Denies easy bleeding and Denies easy bruising Aller/Immun Denies wheezing Physical exam (Primary Care) Vital Signs: Last Vital Signs Pulse 67 10/22/23 08:49 BP 150/98 H 10/22/23 08:49 Pulse Ox 98 10/22/23 08:49 Oxygen Delivery Method Room Air 10/22/23 08:49 BMI result Body Mass Index 31.4 BMI Assessment/Plan discussion: High Tobacco/Smoking Status: Tobacco use Status Tobacco use date assessed 03/23/23 10/22/23 08:50 Patient Tobacco Use Status Never used Tobacco 10/22/23 08:50 e-Cigarette/Vaping Use Never Used 10/22/23 08:50 PHQ-9: PHQ-9 Score PHQ-9: Total score 10 10/22/23 09:08 Depression Screening Interpretation: Positive Thrive Assessment: Date of Thrive Assessment Date Thrive assessed 10/22/23 10/22/23 08:51 Const Other: Obese General: healthy appearing, no acute distress, alert and awake Nutritional Appearance: well nourished Orientation/consciousness: oriented to person, oriented to place and oriented to time HENMT Ears: TM's normal bilaterally General nose exam: Normal nasal mucous membranes and turbinates present Eyes Conjunctivae: conjunctivae normal Sclerae: sclerae normal Pupils: Equal, round and reactive pupils present Neck Neck: Yes no lymphadenopathy and Yes no JVD Thyroid: Thyroid normal Carotids: no bruits Resp Effort & Inspection: normal respiratory effort and not tachypneic Auscultation: no crackles, no rales, no rhonchi and no wheezes Cardio Rate: regular rate Rhythm: regular rhythm Heart sounds: no murmurs and normal S1 and S2 GI Palpation (GI): Soft to palpation, nontender, no hepatomegaly and no splenomegaly Auscultation: normal bowel sounds Skin Other: MULTIPLE HYPERPIGMENTED RAISED ROUGH TEXTURED SKIN LESIONS OVER HER BACK. General skin exam: dry skin Neuro General: oriented to person, oriented to place and oriented to time Cranial nerves: Yes Equal, round and reactive pupils present Speech: No Abnormal speech present Gait exam (Neuro): Normal gait present Motor exam (neuro): no tremor noted Extrem Right upper extremity: full ROM Left upper extremity: full ROM Right lower extremity: full ROM; no edema Left lower extremity: full ROM; no edema Psych Mental Status: mental status grossly normal Speech and movement: Normal speech and movement present Affect: normal affect Attitude: cooperative Thought process: Normal thought process present Assessment and Plan Assessment & Plan (1) HTN (hypertension): Code(s): I10 - Essential (primary) hypertension Qualifiers: Hypertension type: essential hypertension Qualified Code(s): I10 - Essential (primary) hypertension Plan: Patient's blood pressure slightly elevated today in office. He reports he has not taken his blood pressure medication. Advised to monitor his blood pressure at home and if consistently above 140/90 will consider increasing dose of losartan. Goal blood pressure to be below 140/90 (2) Osteoarthritis of left knee: Code(s): M17.12 - Unilateral primary osteoarthritis, left knee Qualifiers: Osteoarthritis type: primary Qualified Code(s): M17.12 - Unilateral primary osteoarthritis, left knee Plan: Has seen orthopedic and prescribed steroid Medrol pack. Has never taken medication. The area of his knee has a palpable lump that is mobile and seems to be in the skin. He is somewhat interested in having the subcutaneous lump removed though will hold off on this time. Patient topical analgesics. (3) HLD (hyperlipidemia): Code(s): E78.5 - Hyperlipidemia, unspecified Qualifiers: Hyperlipidemia type: mixed hyperlipidemia Qualified Code(s): E78.2 - Mixed hyperlipidemia Plan: Patient continues on statin therapy without side effect. Advised to get fasting lipid panel done [facility] to evaluate total cholesterol and LDL. Goal LDL to be below 160 (4) MDD (major depressive disorder), recurrent episode, mild: Code(s): F33.0 - Major depressive disorder, recurrent, mild Plan: Patient's PHQ-9 score positive for mild depression which has been existing condition for him though has worsened over the last year due to to divorce. He is now interested in establishing care with a mental health therapist and starting medication. Will follow-up in 4 weeks to evaluate effectiveness of the medication. (5) YOUSUF (generalized anxiety disorder): Code(s): F41.1 - Generalized anxiety disorder Plan: Patient's YOUSUF-7 score positive for mild anxiety which has been an existing condition for him. He reports his anxiety has gotten a bit worse did do going through a divorce at this time. (6) Seborrheic keratosis: Code(s): L82.1 - Other seborrheic keratosis Plan: Has skin manifestation over his packs consistent with seborrheic keratosis. Advised on moisturizing and use of topical steroid from time to time. (7) Obese: Code(s): E66.9 - Obesity, unspecified Qualifiers: Obesity type: due to excess calories Obesity classification: adult class 1 (BMI 30 - 34.9) Serious obesity comorbidity presence: without serious comorbidity Body mass index: BMI 30.0-30.9 Qualified Code(s): E66.09 - Other obesity due to excess calories; Z68.30 - Body mass index [BMI] 30.0-30.9, adult Plan: Patient does understand his BMI is over 30 will try to be more physically active and adapt to better eating habits to reduce his weight. Orders: Orders Microalbumin, Random (w Creat) Today I10 - Essential (primary) hypertension Prostate Specific Antigen Scr Today N52.9 - Male erectile dysfunction, unspecified, Z12.5 - Encounter for screening for malignant neoplasm of prostate Lipid Panel Today E78.2 - Mixed hyperlipidemia Comprehensive [place]. Panel Fast Today I10 - Essential (primary) hypertension Referrals Counseling Referral F33.0 - Major depressive disorder, recurrent, mild Medications: New escitalopram oxalate (Lexapro) 10 mg PO DAILY 30 days 30 tabs 3RF F33.0 - Major depressive disorder, recurrent, mild triamcinolone acetonide 0.1% 1 appl topical DAILY 30 days 60 mL 3RF L82.1 - Other seborrheic keratosis Coding Level of Care Code Est Pt Level 4 (02001) Diagnoses Essential hypertension I10 Hypertension type: essential hypertension Primary osteoarthritis of left knee M17.12 Osteoarthritis type: primary Mixed hyperlipidemia E78.2 Hyperlipidemia type: mixed hyperlipidemia MDD (major depressive disorder), recurrent episode, mild F33.0 YOUSUF (generalized anxiety disorder) F41.1 Seborrheic keratosis L82.1 Class 1 obesity due to excess calories without serious comorbidity with body mass index (BMI) of 30.0 to 30.9 in adult E66.09; Z68.30 Obesity type: due to excess calories Obesity classification: adult class 1 (BMI 30 - 34.9) Serious obesity comorbidity presence: without serious comorbidity Body mass index: BMI 30.0-30.9 Additional Codes OYUSUF-7 Assessment Billing - YOUSUF-7 Assessment Tool: YOUSUF-7 Assessment 09206 ([id number])
== END 2023-10-22 09:32 | disposition home or self-care (01) ==
PROVIDERS: PCP Physician Assistant; Visit Provider Physician Assistant
DX: I10 Essential (primary) hypertension (principal); M17.12 Unilateral primary osteoarthritis, left knee; E78.2 Mixed hyperlipidemia; F33.0 Major depressive disorder, recurrent, mild; F41.1 Generalized anxiety disorder; L82.1 Other seborrheic keratosis; E66.09 Other obesity due to excess calories; Z68.30 Body mass index [BMI] 30.0-30.9, adult
CPT/HCPCS: 96127; 99214

== ENCOUNTER 2023-12-21 15:08 | Outpatient (AMB) | payer OTHER, SELFPAY ==
--- NOTE | 2023-12-21 15:05 | A.OFFPC_ITS ---
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 Accompanied by: Self / Same As Patient Allergies No Known Allergies [No Known Allergies*] Allergy (Verified 12/21/23 15:22) Medication List - Last Reconciled 12/21/23 by Ronni Soto PA-C escitalopram oxalate (Lexapro) 10 mg PO DAILY 30 days losartan 50 mg PO DAILY sildenafil 100 mg PO DAILY PRN 30 days simvastatin 40 mg PO QPM 90 days triamcinolone acetonide 0.1% 1 appl topical DAILY 30 days Tobacco use date assessed: 12/21/23 Dental Screening Dental Screen Date: 12/21/23 Did you have a dental visit in the last 12 months?: No Did you have a dental problem in the last 6 months where you did not have access to dental care?: No Was dental information given to patient?: Patient has dentist HPI f/u MDD (telehealth) HPI Details Patient is a 63-year-old male being evaluated today via telephone only. At last visit we discussed his anxiety and depression and was willing to start Lexapro to help him which has worked well. You like to stay on the medication for the time being and will wean off when appropriate. [facility] Medical History Tubular adenoma COVID-19 vaccine series completed Elevated cholesterol HTN (hypertension) Chronic prostatitis Primary osteoarthritis of left shoulder Primary osteoarthritis, right shoulder Other chronic pain Skin lesion of back Surgical History Hx of colonoscopy Family History Father History of stomach cancer Mother HTN (hypertension) Diabetes mellitus Social History Housing: House Are you a primary daycare worker to a significant other at home: No Do you presently have visiting nurse or other home services: No Alcohol intake: current Alcohol intake frequency: holidays/special occasions only Patient Tobacco Use Status: Never used Tobacco e-Cigarette/Vaping Use: Never Used Second Hand Smoke Exposure: No service: No Current occupational status: retired 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 Cognitive needs: No Hearing needs: No Vision needs: No Questionnaire Thrive Questionnaire Date Thrive assessed: 10/22/23 YOUSUF-7 AMB Questionnaire YOUSUF-7 Date YOUSUF - 7 assessed: 10/22/23 Source: Developed by Drs. Chris Mejia, Lisa Cottrell, El Conley and colleagues, with an educational chris from [employer]. Review of Systems Const Denies headache(s) Eyes Denies loss of vision ENT Denies vertigo, Denies dizziness, Denies headache(s) and Denies sore throat Card Denies chest pain, Denies leg edema and Denies lightheadedness Resp Denies cough, Denies hemoptysis and Denies wheezing GI Denies abdominal pain, Denies melena, Denies constipation, Denies diarrhea and Denies vomiting Denies dysuria, Denies urinary frequency and Denies urinary urgency Musc Denies arthralgias, Denies joint swelling, Denies numbness and Denies tingling Neuro Denies behavioral changes, Denies vertigo, Denies dizziness, Denies headache(s), Denies loss of vision, Denies memory loss, Denies numbness and Denies tingling Psych Denies anxiety, Denies behavioral changes, Denies depression, Denies memory loss and Denies panic attacks Campos/Lymph Denies easy bleeding and Denies easy bruising Aller/Immun Denies wheezing Physical exam (Primary Care) Tobacco/Smoking Status: Tobacco use Status Tobacco use date assessed 12/21/23 12/21/23 15:07 Patient Tobacco Use Status Never used Tobacco 12/21/23 15:07 e-Cigarette/Vaping Use Never Used 12/21/23 15:07 Thrive Assessment: Date of Thrive Assessment Date Thrive assessed 10/22/23 12/21/23 15:07 Telehealth Telehealth Location of provider rendering services: practice address Location of patient: address on file Patient Identification confirmed using: Name, : Yes Telehealth method: voice only Patient verbally consented to treatment: Yes Patient verbally consented to billing insurance company: Yes Patient informed of any privacy concerns related to visit: Yes Minutes spent on Phone/Video with Pt.: 11 Assessment and Plan Assessment & Plan (1) MDD (major depressive disorder), recurrent episode, mild: Code(s): F33.0 - Major depressive disorder, recurrent, mild Plan: Patient reports his depression is much better since starting Lexapro. Will continue him on Lexapro for next few months. (2) YOUSUF (generalized anxiety disorder): Code(s): F41.1 - Generalized anxiety disorder Plan: Patient reports his anxiety has been much better since starting Lexapro. Will continue him on Lexapro at this time Orders: Orders Comprehensive [place]. Panel Fast Today I10 - Essential (primary) hypertension Lipid Panel Today E78.2 - Mixed hyperlipidemia Complete Blood Count no Diff Today E78.5 - Hyperlipidemia, unspecified, R19.5 - Other fecal abnormalities Medications: Changed From escitalopram oxalate (Lexapro) 10 mg PO DAILY 30 days 30 tabs 3RF F33.0 - Major depressive disorder, recurrent, mild To escitalopram oxalate (Lexapro) 10 mg PO DAILY 90 days 90 tabs 0RF F33.0 - Major depressive disorder, recurrent, mild From losartan 50 mg PO DAILY 30 tabs 6RF I10 - Essential (primary) hypertension To losartan 50 mg PO DAILY 90 days 90 tabs 2RF I10 - Essential (primary) hypert ension Refilled simvastatin 40 mg PO QPM 90 days 90 tabs 2RF E78.2 - Mixed hyperlipidemia Coding Level of Care Code Tele New Pt Level 4 (09054) Diagnoses MDD (major depressive disorder), recurrent episode, mild F33.0 YOUSUF (generalized anxiety disorder) F41.1
== END 2023-12-21 16:35 | disposition home or self-care (01) ==
LOC: HO.HMGH 15:08
PROVIDERS: PCP Physician Assistant; Visit Provider Physician Assistant
DX: F33.0 Major depressive disorder, recurrent, mild (principal); F41.1 Generalized anxiety disorder
CPT/HCPCS: 99212

== ENCOUNTER 2024-02-17 07:49 | Outpatient (REF) | payer OTHER, SELFPAY ==
--- NOTE | ~2024-02-17 | US_ITS ---
EXAMINATION: US RETROPERITONEAL LIMITED (RENAL ONLY) CLINICAL INFORMATION: Calculus of kidney. COMPARISON: Renal ultrasound 01/29/2023 and 09/19/2022. TECHNIQUE: Real-time imaging of the kidneys. FINDINGS: RIGHT KIDNEY: 11.7 x 7.1 x 5.3 cm (SAG x AP x TRV). The kidney is normal in size, contour, and echogenicity. Renal cortical thickness is normal. No hydronephrosis. Possible 5 mm nonobstructing calculus in the upper pole versus vascular calcification. Simple cysts in the upper and lower pole. No imaging follow-up is recommended. LEFT KIDNEY: 11.3 x 6.0 x 6.4 cm (SAG x AP x TRV). The kidney is normal in size, contour, and echogenicity. Renal cortical thickness is normal. No calculi or focal parenchymal lesions. No hydronephrosis. US/US renal BI IMPRESSION: Possible nonobstructing 5 mm calculus versus vascular calcification in the upper pole of the right kidney appears new when compared to prior. No hydronephrosis.
== END 2024-02-17 07:50 | disposition home or self-care (01) ==
LOC: HO.US 07:49
PROVIDERS: PCP Physician Assistant; Visit Provider Urology
DX: N20.0 Calculus of kidney (principal)
CPT/HCPCS: 76775

== ENCOUNTER 2024-02-24 08:52 | Outpatient (AMB) | payer OTHER, SELFPAY ==
--- NOTE | 2024-02-24 09:33 | MHC.OFFVIS ---
Intake Visit Reasons: 1Y US(set) Intake Note: Patient is Present for Follow Up Urology Medication: Sildenafil Antibiotic Allergies:None Blood Thinners:None Allergies No Known Allergies [No Known Allergies*] Allergy (Verified 02/24/24 09:34) Medication List - Last Reconciled 02/24/24 by Pawel Fuller MD escitalopram oxalate (Lexapro) 10 mg PO DAILY 90 days losartan 50 mg PO DAILY 90 days sildenafil 100 mg PO DAILY PRN 30 days simvastatin 40 mg PO QPM 90 days triamcinolone acetonide 0.1% 1 appl topical DAILY 30 days HPI Comments Details: Juan C LALA is a very pleasant male. They are a patient of Dr. Soto. He is seen for the following urologic conditions. - prostatitis - nephrolithiasis - erectile dysfunction Twelve month follow-up No evidence of stones on imaging Refill sildenafil Prostatitis/CPPS: They present for further evaluation of chronic prostatitis No current treatment, previously on finasteride Testing included 05/06 PSA 1.2. 11/08 150 with prostatitis, 06/08 1.5, 03/09 1.7, 02/08 1.9 Pain is present lower back. Prostatitis was diagnosed several months ago. Type of prostatitis II - chronic bacterial Nephrolithiasis Passage of stone 02/07 Imaging - 10/09 renal ultrasound no stones - 02/09 renal ultrasound no evidence of stones Erectile dysfunction Progressive Good response to oral sildenafil Concomitant diagnosis includes hypertension, dyslipidemia PFSH Medical History Tubular adenoma COVID-19 vaccine series completed Elevated cholesterol HTN (hypertension) Chronic prostatitis Primary osteoarthritis of left shoulder Primary osteoarthritis, right shoulder Other chronic pain Skin lesion of back Surgical History Hx of colonoscopy Family History Father History of stomach cancer Mother HTN (hypertension) Diabetes mellitus Social History Housing: House Are you a primary child care leader to a significant other at home: No Do you presently have visiting nurse or other home services: No Alcohol intake: current Alcohol intake frequency: holidays/special occasions only Patient Tobacco Use Status: Never used Tobacco e-Cigarette/Vaping Use: Never Used Second Hand Smoke Exposure: No service: No Current occupational status: retired 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 Cognitive needs: No Hearing needs: No Vision needs: No Review of Systems Const Denies chills and Denies fever(s) Card Reports no additional complaints and Denies syncope Resp Denies cough GI Denies abdominal pain and Denies heartburn Reports as per HPI and Denies change in libido Neuro Denies syncope Psych Denies change in libido Endo Denies change in libido Physical Exam Const General: cooperative, healthy appearing, comfortable and no acute distress Orientation/consciousness: patient oriented x3 HEENT Face and sinus: Yes normal facial exam Mouth: moist mucous membranes Neck Neck: Yes normal visual inspection, Yes full ROM and Yes trachea midline Chest Chest palpation & inspection: normal inspection of the chest Resp Effort & Inspection: normal respiratory effort, able to speak in complete sentences and no respiratory distress GI Inspection: Yes normal to inspection Back/Spine/Pelvis Cervical Spine: normal cervical lordosis Thoracic/Lumbar Spine: thoracic and lumbar spine normal to inspection Skin General skin exam: no rashes or lesions noted Neuro General: patient oriented x3, gait normal, tone normal and moves all extremities Extrem General: Yes normal to inspection and Yes capillary refill normal Assessment & Plan Assessment & Plan (1) Erectile dysfunction: Code(s): N52.9 - Male erectile dysfunction, unspecified Category: Medical (2) Nephrolithiasis: Code(s): N20.0 - Calculus of kidney Category: Medical Plan Twelve month follow-up Orders: Orders US renal BI 1 Year N20.0 - Calculus of kidney Medications: Refilled sildenafil [facility] DR33 [id number] 100 mg PO DAILY PRN 30 tabs 0RF sexual activity 30 days N52.9 - Male erectile dysfunction, unspecified Patient Instructions: Imaging studies, laboratory and physical exam results were discussed and reviewed in detail. No major barriers to patient understanding were identified. An opportunity to ask questions regarding the treatment plan was provided. All questions were answered. The patient expressed understanding and agreement with the above treatment plan. The patient is aware they should contact our office by phone for worsening of their current condition or the appearance of new urologic symptoms. Compliance is encouraged with any medications and followup testing that is ordered. It is a privilege to participate in the urologic care of your patient. If you have any questions or concerns regarding treatment for the above conditions, or other urologic issues, please do not hesitate to contact me. The office telephone contact is [phone]. This note is constructed using voice recognition software. While every effort has been made to ensure accuracy rubber compounder mixer errors may have been included. Yours sincerely, Dr Pawel Fuller MD, [facility] - Urology Providers of Expert, Compassionate Care for the Genitourinary System Coding Level of Care Code Est Pt Level 4 (34222) Diagnoses Erectile dysfunction N52.9 Nephrolithiasis N20.0
== END 2024-02-24 10:09 | disposition home or self-care (01) ==
PROVIDERS: Visit Provider Urology
DX: N52.9 Male erectile dysfunction, unspecified (principal); N20.0 Calculus of kidney
CPT/HCPCS: 99213

== ENCOUNTER → 2024-02-24 08:52 | Outpatient (BNVA) | payer OTHER, SELFPAY | PROVIDERS: Visit Provider Urology | DX: N52.9 Male erectile dysfunction, unspecified (principal); N20.0 Calculus of kidney | CPT/HCPCS: 99212 ==

== ENCOUNTER 2024-05-24 07:41 | Outpatient (AMB) | payer OTHER, SELFPAY ==
--- NOTE | 2024-05-24 07:56 | A.OFFVIS_ITS ---
Vital Signs 05/24/24 07:57 Height 5 ft 11 in Weight 227 lb 1.218 oz BMI 31.7 BP 157/74 H Blood Pressure Location Lt brachial Position Sitting Pulse 62 Intake Visit Reasons: 1 yr follow up Intake Note: Juan C presents in the office as a 1 year follow up. CC: He states that he is having acid reflux. He is not sure if that it what it is but that is what it feels like. No irregular bowel movements. Erecting Crane Operator Required: No Allergies No Known Allergies [No Known Allergies*] Allergy (Verified 05/24/24 07:57) HPI HPI 1 yr follow up: Details: LAST VISIT: Abdominal bloating Postprandial abdominal bloating depending on what food that he eats. Discussed with patient all FODMAP diet. List of food recommended as well as list of food to avoid given to patient. Constipation Patient continues to be constipated. Will send patient script for MiraLax to take daily. Patient was encouraged also to increase fluid intake and activity to promote better bowel motility. GERD (gastroesophageal reflux disease) Patient reports occasional acid reflux depending on what he eats. Patient states that it only happens couple times a week. Will send patient script for Pepcid and he can take it on as needed basis. Patient will follow-up with us when 1 year, sooner on as needed basis. Patient is agreeable to this plan and verbalizes understanding of instructions. He was given the opportunity to ask questions and all questions answered. ? Thank you for allowing me to participate in his care Plan Medications New famotidine (Pepcid) 20 mg PO DAILY 30 tabs 3RF K21.9 - Gastro-esophageal reflux disease without esophagitis polyethylene glycol 3350 (Miralax) 17 grams PO DAILY 510 grams 2RF TODAY'S VISIT Patient is here today for follow-up. Patient reports that for the most part he has been feeling well. Occasional acid reflux depending on what he eats and postprandial abdominal bloating. Patient does admit to be waking up in the middle of the night sometimes and snacking. Acid reflux in the morning when he wakes up. Patient denies melena, hematochezia, unintentional weight loss or ribbon like stools. Patient denies dyspepsia, dysphagia or odynophagia. Patient denies any abdominal pain or discomfort. Denies any other GI concerning symptoms [facility], [facility] Medical History (Updated 05/24/24 @ 08:50 by Carolina Ocampo, [facility]) Tubular adenoma COVID-19 vaccine series completed Elevated cholesterol HTN (hypertension) Chronic prostatitis Primary osteoarthritis of left shoulder Primary osteoarthritis, right shoulder Other chronic pain Skin lesion of back Surgical History Hx of colonoscopy Family History Father History of stomach cancer Mother HTN (hypertension) Diabetes mellitus Social History Housing: House Are you a primary rn progressive care unit to a significant other at home: No Do you presently have visiting nurse or other home services: No Alcohol intake: current Alcohol intake frequency: holidays/special occasions only Patient Tobacco Use Status: Never used Tobacco e-Cigarette/Vaping Use: Never Used Second Hand Smoke Exposure: No service: No Current occupational status: retired 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 Cognitive needs: No Hearing needs: No Vision needs: No Review of Systems Const Denies weight gain and Denies weight loss ENT Reports no additional complaints, Denies dysphagia and Denies odynophagia Card Reports no additional complaints Resp Reports no additional complaints GI Denies abdominal pain, Denies belching, Denies melena, Denies bloating, Denies change in bowel habits, Denies dysphagia, Denies excessive flatus, Denies dyspepsia, Denies heartburn, Denies diarrhea, Denies loose stools, Denies nausea, Denies odynophagia and Denies vomiting Reports no additional complaints Musc Reports no additional complaints Neuro Reports no additional complaints Psych Reports no additional complaints Endo Reports no additional complaints Physical Exam Vital Signs: Last Vital Signs Pulse 62 05/24/24 07:57 BP 157/74 H 05/24/24 07:57 BMI result Body Mass Index 31.7 Const General: healthy appearing and no acute distress Nutritional Appearance: obese Orientation/consciousness: patient oriented x3 Resp Effort & Inspection: normal respiratory effort, able to speak in complete sentences, no tracheal deviation and symmetric chest movement Auscultation: clear to auscultation bilaterally Cardio Rate: regular rate GI Inspection: Yes normal to inspection, No distended and Yes obesity Palpation (GI): Soft to palpation, not firm, nontender and No hepatosplenomegaly present Auscultation: normal bowel sounds General: Yes no CVA tenderness Back/Spine/Pelvis Back: no CVA tenderness Skin General skin exam: elasticity normal, turgor normal and dry skin Neuro General: patient oriented x3 Psych Appearance: grossly normal Mental Status: mental status grossly normal Assessment & Plan Assessment & Plan (1) Abdominal bloating: Code(s): R14.0 - Abdominal distension (gaseous) (2) Constipation: Code(s): K59.00 - Constipation, unspecified Qualifiers: Constipation type: slow transit constipation Qualified Code(s): K59.01 - Slow transit constipation (3) GERD (gastroesophageal reflux disease): Code(s): K21.9 - Gastro-esophageal reflux disease without esophagitis Qualifiers: Esophagitis presence: esophagitis presence not specified Qualified Code(s): K21.9 - Gastro-esophageal reflux disease without esophagitis Plan Patient was encouraged to avoid dietary triggers and late night snacking. Staying upright for minimum 3 hours after meals discussed with patient. Smaller meals and more often. Start pantoprazole daily. Increase fluid intake and activity to promote better bowel motility. Patient will return in 6 months, sooner on as needed basis. Patient is agreeable to this plan and verbalizes understanding of instructions. He was given the opportunity to ask questions and all questions answered Medications: New pantoprazole 20 mg PO DAILY 90 tabs 3RF Coding Level of Care Code Est Pt Level 3 (07530) Diagnoses Abdominal bloating R14.0 Slow transit constipation K59.01 Constipation type: slow transit constipation Gastroesophageal reflux disease, unspecified whether esophagitis present K21.9 Esophagitis presence: esophagitis presence not specified Time Spent (min) 25 Comment 15 minutes spent with patient and additional 10 minutes spent reviewing his records
[2024-05-24 07:57] VITALS: BP 157/74; PULSE 62; BMI 31.7
== END 2024-05-24 08:19 | disposition home or self-care (01) ==
PROVIDERS: PCP Physician Assistant; Visit Provider Nurse Practitioner Family
DX: R14.0 Abdominal distension (gaseous) (principal); K59.01 Slow transit constipation; K21.9 Gastro-esophageal reflux disease without esophagitis
CPT/HCPCS: 99213

== ENCOUNTER → 2024-05-24 07:41 | Outpatient (BNVA) | payer OTHER, SELFPAY | PROVIDERS: PCP Physician Assistant; Visit Provider Nurse Practitioner Family | DX: K21.9 Gastro-esophageal reflux disease without esophagitis (principal); K59.01 Slow transit constipation; R14.0 Abdominal distension (gaseous) | CPT/HCPCS: 99212 ==

== ENCOUNTER 2024-08-01 08:34 | Outpatient (AMB) | payer OTHER, SELFPAY ==
--- NOTE | 2024-08-01 08:43 | MHC.PC.OV ---
Vital Signs 08/01/24 08:44 Height 5 ft 11 in Weight 226 lb 8 oz BMI 31.6 BP 140/90 H Blood Pressure Location Lt brachial Position Sitting Pulse 68 Pulse Source Pulse Oximeter Pulse Oximetry (%) 97 Oxygen Delivery Method Room Air Intake Visit Reasons: f/u htn/ HLD Intake Note: Patient is here to follow up on HTN, HLD. Community Administrator Required: No Digital Marketing Associate: Not Required per policy Accompanied by: Self / Same As Patient Allergies No Known Allergies [No Known Allergies*] Allergy (Verified 08/01/24 08:56) Medication List - Last Reconciled 08/01/24 by Ronni Soto PA-C losartan 50 mg PO DAILY 90 days pantoprazole 20 mg PO DAILY sildenafil 100 mg PO DAILY PRN 30 days simvastatin 40 mg PO QPM 90 days triamcinolone acetonide 0.1% 1 appl topical DAILY 30 days Tobacco use date assessed: 08/01/24 Dental Screening Dental Screen Date: 12/21/23 HPI f/u htn/ HLD HPI Details Patient is a 63-year-old male here today for follow-up visit? Patient has a past medical history significant for ? Hypertension, hyperlipidemia, recurrent prostatitis lumbar spondylosis. Concerns> reports he would like to see an eye doctor as he has been having some blurry vision and difficulty with reading. Has had difficulty getting into an eye doctor due to insurance reasons. He will try an external relations manager.. ,, ?hypertension: Blood pressure slightly elevated today in office, he reports he has not taken his blood pressure medication today. He does check his blood pressure at home and does report consistent readings of 140 systolic. Otherwise denies any headaches, chest pains, shortness of breath. PLAN: Will add on hydrochlorothiazide 12.5 mg for better blood pressure control. .. ? Hyperlipidemia: lipid panels have been stable, has no side effect from statin therapy.? Will continue to follow lipid panel. [facility] [place] Medical History (Updated 08/01/24 @ 09:11 by Ronni Soto PA-C) Tubular adenoma COVID-19 vaccine series completed Elevated cholesterol HTN (hypertension) Chronic prostatitis Primary osteoarthritis of left shoulder Primary osteoarthritis, right shoulder Other chronic pain Skin lesion of back Surgical History Hx of colonoscopy Family History Father History of stomach cancer Mother HTN (hypertension) Diabetes mellitus Social History Housing: House Are you a primary wound care technician to a significant other at home: No Do you presently have visiting nurse or other home services: No Alcohol intake: current Alcohol intake frequency: holidays/special occasions only Patient Tobacco Use Status: Never used Tobacco e-Cigarette/Vaping Use: Never Used Second Hand Smoke Exposure: No service: No 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 Chris Mejia, Lisa Cottrell, El Conley and colleagues, with an educational chris from [employer]. Review of Systems Const Denies headache(s) Eyes Denies loss of vision ENT Denies vertigo, Denies dizziness, Denies headache(s) and Denies sore throat Card Denies chest pain, Denies leg edema and Denies lightheadedness Resp Denies cough, Denies hemoptysis and Denies wheezing GI Denies abdominal pain, Denies melena, Denies constipation, Denies diarrhea and Denies vomiting Denies dysuria, Denies urinary frequency and Denies urinary urgency Musc Denies arthralgias, Denies joint swelling, Denies numbness and Denies tingling Neuro Denies Abnormal speech present, Denies behavioral changes, Denies vertigo, Denies dizziness, Denies headache(s), Denies loss of vision, Denies memory loss, Denies numbness and Denies tingling Psych Denies anxiety, Denies behavioral changes, Denies depression, Denies memory loss and Denies panic attacks Campos/Lymph Denies easy bleeding and Denies easy bruising Aller/Immun Denies wheezing Physical exam (Primary Care) Vital Signs: Last Vital Signs Pulse 68 08/01/24 08:44 BP 140/90 H 08/01/24 08:44 Pulse Ox 97 08/01/24 08:44 Oxygen Delivery Method Room Air 08/01/24 08:44 BMI result Body Mass Index 31.6 Tobacco/Smoking Status: Tobacco use Status Tobacco use date assessed 08/01/24 08/01/24 08:49 Patient Tobacco Use Status Never used Tobacco 08/01/24 08:49 e-Cigarette/Vaping Use Never Used 08/01/24 08:49 Thrive Assessment: Date of Thrive Assessment Date Thrive assessed 10/22/23 08/01/24 08:49 Const General: healthy appearing, no acute distress, alert and awake Nutritional Appearance: well nourished Orientation/consciousness: oriented to person, oriented to place and oriented to time HENMT Ears: TM's normal bilaterally General nose exam: Normal nasal mucous membranes and turbinates present Eyes Conjunctivae: conjunctivae normal Sclerae: sclerae normal Pupils: Equal, round and reactive pupils present Neck Neck: Yes no lymphadenopathy and Yes no JVD Thyroid: Thyroid normal Carotids: no bruits Resp Effort & Inspection: normal respiratory effort and not tachypneic Auscultation: no crackles, no rales, no rhonchi and no wheezes Cardio Rate: regular rate Rhythm: regular rhythm Heart sounds: no murmurs and normal S1 and S2 GI Palpation (GI): Soft to palpation, nontender, no hepatomegaly and no splenomegaly Auscultation: normal bowel sounds Skin General skin exam: no rashes or lesions noted and dry skin Neuro General: oriented to person, oriented to place and oriented to time Cranial nerves: Yes Equal, round and reactive pupils present Speech: No Abnormal speech present Gait exam (Neuro): Normal gait present Motor exam (neuro): no tremor noted Extrem Right upper extremity: full ROM Left upper extremity: full ROM Right lower extremity: full ROM; no edema Left lower extremity: full ROM; no edema Psych Mental Status: mental status grossly normal Speech and movement: Normal speech and movement present Affect: normal affect Attitude: cooperative Thought process: Normal thought process present Office Procedures Flu Questionnaire Does the patient have a severe egg allergy?: No Does the patient have severe life threatening allergies?: No Does the patient have a fever or illness today?: No Has the patient ever had Guillain-Marion Syndrome?: No Has the patient ever had any past reaction to a flu shot?: No Immunizations Fluarix Triv [id number] (PF) 45 mcg (15 mcg x 3)/0.5 mL IM syringe Performing Provider: Ronni Soto PA-C Performing Location: [facility] Administered by: Yoly Carvalho LPN on 08/01/24 08:55 Dose Route Admin Location Dispensed Lot Number Expiration Date NDC Table Hand 0.5 mL IM Left Deltoid 0.5 mL [id number] 04/17/25 [id number] [employer] VIS Given Date VIS Provided VIS Publication Date 08/01/24 Single Vaccine 21 Eligibility Eligibility Date Funding Source Not [facility] Eligible 08/01/24 Private Coding Level of Care Code Est Pt Level 4 (40309) Diagnoses Essential hypertension I10 Hypertension type: essential hypertension Mixed hyperlipidemia E78.2 Hyperlipidemia type: mixed hyperlipidemia Blurred vision, bilateral H53.8 Assessment & Plan Assessment & Plan (1) HTN (hypertension): Code(s): I10 - Essential (primary) hypertension Category: Medical Qualifiers: Hypertension type: essential hypertension Qualified Code(s): I10 - Essential (primary) hypertension Plan: Patient's blood pressure slightly elevated today in office. He does report at a pressures are 140 systolic. Will add on hydrochlorothiazide to his blood pressure med regime for better blood pressure control. Goal blood pressures to be below 140/90. (2) HLD (hyperlipidemia): Code(s): E78.5 - Hyperlipidemia, unspecified Category: Medical Qualifiers: Hyperlipidemia type: mixed hyperlipidemia Qualified Code(s): E78.2 - Mixed hyperlipidemia Plan: recent labs showing great control of his total cholesterol and LDL. Does have slightly elevated triglycerides. He will continue on current statin. Goal LDL is to remain below 100 (3) Blurred vision, bilateral: Code(s): H53.8 - Other visual disturbances Category: Medical Plan: Patient does report having blurry vision. He has been having difficulty getting into an sql server architect to get an eye exam. He will try a external relations manager for prescription reading glasses. Will refer to Ophthalmology for evaluation of his eye as he does a long history of hypertension. Orders: Orders Microalbumin, Random (w Creat) Today I10 - Essential (primary) hypertension Comprehensive [place]. Panel Fast Today I10 - Essential (primary) hypertension Complete Blood Count no Diff Today I10 - Essential (primary) hypertension Lipid Panel Today E78.2 - Mixed hyperlipidemia Influenza [id number] Immunization Today Z23 - Encounter for immunization Prostate Specific Antigen Scr Today E78.2 - Mixed hyperlipidemia, Z12.5 - Encounter for screening for malignant neoplasm of prostate Referrals Ophthalmology Referral H53.8 - Other visual disturbances Medications: New losartan-hydrochlorothiazide 50-12.5 mg 1 tab PO DAILY 90 tabs 1RF 90 days I10 - Essential (primary) hypertension Discontinued losartan Discontinued Reason: Doctor's Order 50 mg PO DAILY 90 days 90 tabs 2RF I10 - Essential (primary) hypertension Patient Instructions: Goal: Blood pressure to remain below 140/90, LDL to be below 100 Barriers: Adherence to physical activity and healthy eating habits
[2024-08-01 08:44] VITALS: BP 140/90; PULSE 68; O2SAT 97; BMI 31.6
== END 2024-08-01 09:19 | disposition home or self-care (01) ==
PROVIDERS: PCP Physician Assistant; Visit Provider Physician Assistant
DX: I10 Essential (primary) hypertension (principal); E78.2 Mixed hyperlipidemia; H53.8 Other visual disturbances; Z23 Encounter for immunization

== ENCOUNTER → 2024-08-01 08:34 | Outpatient (BNVA) | payer OTHER, SELFPAY | PROVIDERS: PCP Physician Assistant; Visit Provider Physician Assistant | DX: Z23 Encounter for immunization (principal); I10 Essential (primary) hypertension; E78.2 Mixed hyperlipidemia; H53.8 Other visual disturbances | CPT/HCPCS: 90471; 90656; 99212 ==

== ENCOUNTER 2024-11-29 07:44 | Outpatient (AMB) | payer OTHER, SELFPAY ==
--- NOTE | 2024-11-29 07:58 | MHC.OFFVIS ---
Vital Signs 11/29/24 08:04 Height 5 ft 11 in Weight 217 lb BMI 30.3 BP 137/65 Blood Pressure Location Lt brachial Position Sitting Pulse 65 Intake Visit Reasons: 6 month follow up abd bloating Intake Note: Patent 6 month follow up for abdominal bloating. Patient denies any GI issues for today. 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 Staying upright for minimum 3 hours after meals discussed with patient. Smaller meals and more often. Start pantoprazole daily. Increase fluid intake and activity to promote better bowel motility. Patient will return in 6 months, sooner on as needed basis. Patient is agreeable to this plan and verbalizes understanding of instructions. He was given the opportunity to ask questions and all questions answered Medications New pantoprazole 20 mg PO DAILY 90 tabs 3RF TODAY'S VISIT Patient is here today for follow-up. Patient reports that since last time I have seen him he has been doing much better. Started pantoprazole every morning. Reports no acid reflux, dyspepsia, dysphagia or odynophagia. Patient reports that he no longer is experiencing acid reflux. States that his symptoms are well controlled. Patient admits to eating pizza late at night couple times and had no symptoms. Patient denies melena, hematochezia. Reports that he has good appetite. Denies any nausea or vomiting. Last colonoscopy in July of 2021, recommendation was made for 5 years follow-up due to tubular adenoma. [facility] Medical History (Updated 08/01/24 @ 09:11 by Ronni Soto PA-C) Tubular adenoma COVID-19 vaccine series completed Elevated cholesterol HTN (hypertension) Chronic prostatitis Primary osteoarthritis of left shoulder Primary osteoarthritis, right shoulder Other chronic pain Skin lesion of back Surgical History Hx of colonoscopy Family History Father History of stomach cancer Mother HTN (hypertension) Diabetes mellitus Social History Housing: House Are you a primary critical care nurse practitioner to a significant other at home: No Do you presently have visiting nurse or other home services: No Alcohol intake: current Alcohol intake frequency: holidays/special occasions only Patient Tobacco Use Status: Never used Tobacco e-Cigarette/Vaping Use: Never Used Second Hand Smoke Exposure: No service: No Current occupational status: retired 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 Cognitive needs: No Hearing needs: No Vision needs: No Review of Systems Const Denies weight gain and Denies weight loss ENT Reports no additional complaints, Denies dysphagia and Denies odynophagia Card Reports no additional complaints Resp Reports no additional complaints GI Denies abdominal pain, Denies belching, Denies melena, Denies bloating, Denies change in bowel habits, Denies dysphagia, Denies excessive flatus, Denies dyspepsia, Denies heartburn, Denies diarrhea, Denies loose stools, Denies nausea, Denies odynophagia and Denies vomiting Reports no additional complaints Musc Reports no additional complaints Neuro Reports no additional complaints Psych Reports no additional complaints Endo Reports no additional complaints Physical Exam Vital Signs: Last Vital Signs Pulse 65 11/29/24 08:04 BP 137/65 11/29/24 08:04 BMI result Body Mass Index 30.3 Const General: healthy appearing and no acute distress Nutritional Appearance: obese Orientation/consciousness: patient oriented x3 Resp Effort & Inspection: normal respiratory effort, able to speak in complete sentences, no tracheal deviation and symmetric chest movement Auscultation: clear to auscultation bilaterally Cardio Rate: regular rate GI Inspection: Yes normal to inspection, No distended and Yes obesity Palpation (GI): Soft to palpation, not firm, nontender and No hepatosplenomegaly present Auscultation: normal bowel sounds General: Yes no CVA tenderness Back/Spine/Pelvis Back: no CVA tenderness Skin General skin exam: elasticity normal, turgor normal and dry skin Neuro General: patient oriented x3 Psych Appearance: grossly normal Mental Status: mental status grossly normal Assessment & Plan Assessment & Plan (1) Abdominal bloating: Code(s): R14.0 - Abdominal distension (gaseous) (2) Constipation: Code(s): K59.00 - Constipation, unspecified Qualifiers: Constipation type: slow transit constipation Qualified Code(s): K59.01 - Slow transit constipation (3) GERD (gastroesophageal reflux disease): Code(s): K21.9 - Gastro-esophageal reflux disease without esophagitis Qualifiers: Esophagitis presence: esophagitis presence not specified Qualified Code(s): K21.9 - Gastro-esophageal reflux disease without esophagitis Plan Patient will continue pantoprazole. Will switch the script to [facility] and good Rx card given to patient patient reports high co-pay with his insurance. Patient was encouraged to avoid dietary triggers and late night snacking. Staying upright for minimum 3 hours after meals discussed with patient. Patient will be due to go for colonoscopy next year in July. Patient will call our office if he will have any GI concerning symptoms. Follow-up in 1 year, sooner on as needed basis. Patient is agreeable to this plan and verbalizes understanding of instructions. She was given the opportunity to ask questions and all questions answered. Thank you for allowing me to participate in his care Medications: Refilled pantoprazole 20 mg PO DAILY 90 tabs 3RF Coding Level of Care Code Est Pt Level 3 (87263) Diagnoses Abdominal bloating R14.0 Slow transit constipation K59.01 Constipation type: slow transit constipation Gastroesophageal reflux disease, unspecified whether esophagitis present K21.9 Esophagitis presence: esophagitis presence not specified Time Spent (min) 25 Comment 15 minutes spent with patient and additional 10 minutes spent reviewing his records
[2024-11-29 08:04] VITALS: BP 137/65; PULSE 65; BMI 30.3
== END 2024-11-29 08:19 | disposition home or self-care (01) ==
PROVIDERS: PCP Physician Assistant; Visit Provider Nurse Practitioner Family
DX: R14.0 Abdominal distension (gaseous) (principal); K59.01 Slow transit constipation; K21.9 Gastro-esophageal reflux disease without esophagitis
CPT/HCPCS: 99213

== ENCOUNTER → 2024-11-29 07:44 | Outpatient (BNVA) | payer OTHER, SELFPAY | PROVIDERS: PCP Physician Assistant; Visit Provider Nurse Practitioner Family | DX: K21.9 Gastro-esophageal reflux disease without esophagitis (principal); K59.01 Slow transit constipation; R14.0 Abdominal distension (gaseous) | CPT/HCPCS: 99212 ==

== ENCOUNTER 2024-12-20 08:45 | Outpatient (AMB) | payer OTHER, SELFPAY ==
--- NOTE | 2024-12-20 09:13 | MHC.PC.OV ---
Vital Signs 12/20/24 09:14 Height 5 ft 11 in Weight 221 lb 6 oz BMI 30.9 BP 110/66 Blood Pressure Location Lt brachial Position Sitting Pulse 75 Pulse Source Pulse Oximeter Temp 97.5 F Temp Source Temporal Artery Scan Pulse Oximetry (%) 96 Oxygen Delivery Method Room Air Intake Visit Reasons: annual exam Intake Note: Patient is here today for a physical. 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: No Client Account Manager: Not Required per policy Accompanied by: Self / Same As Patient Allergies No Known Allergies [No Known Allergies*] Allergy (Verified 12/20/24 09:20) Medication List - Last Reconciled 12/20/24 by Ronni Soto PA-C losartan-hydrochlorothiazide 50-12.5 mg 1 tab PO DAILY 90 days pantoprazole 20 mg PO DAILY sildenafil 100 mg PO DAILY PRN 30 days simvastatin 40 mg PO QPM 90 days triamcinolone acetonide 0.1% 1 appl topical DAILY 30 days Tobacco use date assessed: 12/20/24 Fall risk assessment: No Falls in past year Last assessed Fall Risk: 12/20/24 Dental Screening Dental Screen Date: 12/20/24 Did you have a dental visit in the last 12 months?: No Did you have a dental problem in the last 6 months where you did not have access to dental care?: No Was dental information given to patient?: No HPI annual exam HPI Details Patient is a 64-year-old male here today for routine annual physical. ? Patient has a past medical history significant for ? Hypertension, hyperlipidemia, recurrent prostatitis , lumbar spondylosis. ,, ?hypertension: Blood pressure on low side today in office. He denies any particular fatigue, dizziness or syncopal episodes. He does check his blood pressure at home and does report consistent readings of 140 systolic. Otherwise denies any headaches, chest pains, shortness of breath. PLAN: Discontinue hydrochlorothiazide and continue losartan 50 mg and monitor blood pressure regularly. .. ? Hyperlipidemia: lipid panels have been stable, has no side effect from statin therapy.? Will continue to follow lipid panel. Colonoscopy:? Did receive colonoscopy 2020 polyp found (tubular adenoma)-->? repeat 5 years Vaccines: Up-to-date with tetanus vaccine, shingles vaccine, COVID vaccine and flu vac, Need PCV-20 PFSH Medical History Tubular adenoma COVID-19 vaccine series completed Elevated cholesterol HTN (hypertension) Chronic prostatitis Primary osteoarthritis of left shoulder Primary osteoarthritis, right shoulder Other chronic pain Skin lesion of back Surgical History Hx of colonoscopy Family History Father History of stomach cancer Mother HTN (hypertension) Diabetes mellitus Social History (Updated 12/20/24 @ 09:24 by Ronni Soto PA-C) Housing: House Are you a primary home care associate to a significant other at home: No Do you presently have visiting nurse or other home services: No Alcohol intake: current Alcohol intake frequency: holidays/special occasions only Patient Tobacco Use Status: Never used Tobacco e-Cigarette/Vaping Use: Never Used Second Hand Smoke Exposure: No service: No Current occupational status: retired 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 Cognitive needs: No Hearing needs: No Vision needs: No Questionnaire PHQ-9 Over the last 2 weeks, how often have you been bothered by any of the following problems? 1. Little interest or pleasure in doing things: not at all 2. Feeling down, depressed, or hopeless: not at all 3. Trouble falling or staying asleep, or sleeping too much: not at all 4. Feeling tired or having little energy: not at all 5. Poor appetite or overeating: not at all 6. Feeling bad about yourself - or that you are a failure or have let yourself or your family down: not at all 7. Trouble concentrating on things, such as reading the newspaper or watching television: not at all 8. Moving or speaking so slowly that other people could have noticed. Or the opposite - being so fidgety or restless that you have been moving around a lot more than usual: not at all 9. Thoughts that you would be better off or of hurting yourself in some way: not at all Total score: 0 Depression Screening Interpretation: Negative Depression Screening Done: Yes 72607 - PHQ-9 Billing: Yes Source: Developed by Drs. Chris Mejia, Lisa Cottrell, El Conley and colleagues, with an educational chris from [employer]. Thrive Questionnaire Date Thrive assessed: 12/20/24 I am a: Patient What is your living situation today?: I have a steady place to live Within the past 12 months, did the food you bought not last and you didn't have the money to get more?: I choose not to answer this question Within the past 12 months, did you worry whether your food would run out before you got money to buy more?: I choose not to answer this question Do you have trouble paying for medicines?: I choose not to answer this question Do you have trouble getting transportation to medical appointments?: No Do you have trouble paying your heating and electricity bill?: I choose not to answer this question Do you have trouble taking care of your child, family member or friend?: No Do you have trouble with day-to-day activities such as bathing, preparing meals, shopping, managing finances, etc.?: I choose not to answer this question Are you currently unemployed and looking for a job?: I choose not to answer this question Are you interested in more education?: I choose not to answer this question Please select the resources that you would like help with: None Currently or been in a relationship where the following occur: I choose not to answer THRIVE Score: 0 AUDIT C Alcohol Use Questionnaire (AUDIT-C) 1. How often do you have a drink containing alcohol?: 2-4 times a month 2. How many drinks containing alcohol do you have on a typical day when you are drinking?: 1 or 2 3. How often do you have six or more drinks on one occasion?: Never Total Score: 2 YOUSUF-7 AMB Questionnaire YOUSUF-7 Date YOUSUF - 7 assessed: 12/20/24 Feeling nervous, anxious, or on edge: 0 = Not at all Not being able to stop or control worryin = Not at all Worrying too much about different things: 0 = Not at all Trouble relaxin = Not at all Being so restless that it is hard to sit still: 0 = Not at all Becoming easily annoyed or irritable: 0 = Not at all Feeling afraid as if something awful might happen: 0 = Not at all Total YOUSUF-7 score (0-4 normal; 5-9 mild; 10-14 moderate; 15-21 severe): 0 Source: Developed by Lisa Fortune B.W. Simba, El Conley and colleagues, with an educational chris from [employer]. YOUSUF-7 Assessment Billing YOUSUF-7 Assessment Tool: YOUSUF-7 Assessment 91347 Review of Systems Const Denies excessive sweating, Denies fatigue and Denies headache(s) Eyes Denies loss of vision ENT Denies vertigo, Denies dizziness, Denies headache(s) and Denies sore throat Card Denies chest pain, Denies leg edema and Denies lightheadedness Resp Denies cough, Denies hemoptysis and Denies wheezing GI Denies abdominal pain, Denies melena, Denies constipation, Denies diarrhea and Denies vomiting Denies dysuria, Denies urinary frequency and Denies urinary urgency Musc Denies arthralgias, Denies joint swelling, Denies numbness and Denies tingling Skin/Breast Denies rash and Denies skin ulcer Neuro Denies Abnormal speech present, Denies behavioral changes, Denies vertigo, Denies dizziness, Denies headache(s), Denies loss of vision, Denies memory loss, Denies numbness and Denies tingling Psych Denies anxiety, Denies behavioral changes, Denies depression, Denies memory loss and Denies panic attacks Endo Denies excessive sweating, Denies fatigue, Denies flushing, Denies polydipsia and Denies polyuria Campos/Lymph Denies easy bleeding and Denies easy bruising Aller/Immun Denies wheezing Physical exam (Primary Care) Vital Signs: Last Vital Signs Temp 97.5 F 12/20/24 09:14 Pulse 75 12/20/24 09:14 BP 110/66 12/20/24 09:14 Pulse Ox 96 12/20/24 09:14 Oxygen Delivery Method Room Air 12/20/24 09:14 BMI result Body Mass Index 30.9 Tobacco/Smoking Status: Tobacco use Status Tobacco use date assessed 12/20/24 12/20/24 09:18 Patient Tobacco Use Status Never used Tobacco 12/20/24 09:24 e-Cigarette/Vaping Use Never Used 12/20/24 09:24 PHQ-9: PHQ-9 Score PHQ-9: Total score 0 12/20/24 09:46 Depression Screening Interpretation: Negative Thrive Assessment: Date of Thrive Assessment Date Thrive assessed 12/20/24 12/20/24 09:18 Currently or been in a relationship where the following occur: I choose not to answer Const General: healthy appearing, no acute distress, alert and awake Nutritional Appearance: well nourished Orientation/consciousness: oriented to person, oriented to place and oriented to time HENMT Head: Yes normocephalic Ears: TM's normal bilaterally General nose exam: Normal nasal mucous membranes and turbinates present Face and sinus: No sinus tenderness Mouth: Normal oral and palatal mucosa present and tongue normal Teeth and gingiva: dentition normal and gingiva normal Throat: Yes posterior oropharynx normal, Yes tonsils normal and Yes uvula midline Eyes Conjunctivae: conjunctivae normal Sclerae: sclerae normal Pupils: Equal, round and reactive pupils present EOM: EOMs intact bilaterally Direct Ophthalmoscopy: No no photophobia Neck Neck: Yes no lymphadenopathy and Yes no JVD Thyroid: Thyroid normal Carotids: no bruits Chest Chest palpation & inspection: no tenderness Resp Effort & Inspection: normal respiratory effort and not tachypneic Auscultation: no crackles, no rales, no rhonchi and no wheezes Cardio Jugular venous distension: no JVD Rate: regular rate Rhythm: regular rhythm Heart sounds: no murmurs and normal S1 and S2 Bruits: no carotid bruits Peripheral pulses: Peripheral pulses 2+ throughout GI Inspection: Yes normal to inspection, No abdominal wall ecchymosis and No visible herniation Palpation (GI): Soft to palpation, nontender, no hepatomegaly and no splenomegaly Auscultation: normal bowel sounds General: Yes no CVA tenderness Back/Spine/Pelvis Back: no CVA tenderness and No back tenderness Cervical Spine: cervical ROM normal Thoracic/Lumbar Spine: thoracic and lumbar spine normal to inspection, straight leg raise negative bilaterally, No thoraco-lumbar ROM limited and No lumbar spinal tenderness Skin General skin exam: no rashes or lesions noted and dry skin Lesions: no lesions Rashes: no rashes Wounds: no wounds Neuro General: oriented to person, oriented to place and oriented to time Cranial nerves: Yes Equal, round and reactive pupils present Cognition (Neuro): normal cognition Speech: No Abnormal speech present Gait exam (Neuro): Normal gait present Motor exam (neuro): no tremor noted Extrem Right upper extremity: full ROM Left upper extremity: full ROM Right lower extremity: full ROM; no edema Left lower extremity: full ROM; no edema Psych Appearance: grossly normal Mental Status: mental status grossly normal Speech and movement: Normal speech and movement present Affect: normal affect Attitude: cooperative Thought process: Normal thought process present Immunizations pneumoc 20-marvin conj-dip cr(PF) 0.5 mL IM syringe Performing Provider: Ronni Soto PA-C Performing Location: [facility] Administered by: MESSI Segura on 12/20/24 10:03 Dose Route Admin Location Dispensed Lot Number Expiration Date [facility] Training Development Manager 0.5 mL IM Left Deltoid 0.5 mL [id number] 02/16/26 WYETH/PFIZER VIS Given Date VIS Provided VIS Publication Date 12/20/24 Single Vaccine 21 Eligibility Eligibility Date Funding Source Not [facility] Eligible 12/20/24 Private Coding Level of Care Code Est Pt Prev Care 40-64y(34712) Diagnoses Annual physical exam Z00.00 Essential hypertension I10 Hypertension type: essential hypertension Mixed hyperlipidemia E78.2 Hyperlipidemia type: mixed hyperlipidemia MDD (major depressive disorder), recurrent episode, mild F33.0 Additional Codes YOUSUF-7 Assessment Billing - YOUSUF-7 Assessment Tool: YOUSUF-7 Assessment [id number] ([id number]) PHQ-9 - 25656 - PHQ-9 Billing: Yes ([id number]) Assessment & Plan Assessment & Plan (1) Annual physical exam: Code(s): Z00.00 - Encounter for general adult medical examination without abnormal findings Category: Medical Plan: As per HPI (2) HTN (hypertension): Code(s): I10 - Essential (primary) hypertension Category: Medical Qualifiers: Hypertension type: essential hypertension Qualified Code(s): I10 - Essential (primary) hypertension Plan: Patient's blood pressure much lower now . He denies any symptoms of dizziness or fatigue.. He does report at a pressures are 110 systolic.. Discontinue hydrochlorothiazide. Continue losartan 50. Goal blood pressures to be below 140/90. (3) HLD (hyperlipidemia): Code(s): E78.5 - Hyperlipidemia, unspecified Category: Medical Qualifiers: Hyperlipidemia type: mixed hyperlipidemia Qualified Code(s): E78.2 - Mixed hyperlipidemia Plan: recent labs showing great control of his total cholesterol and LDL. Does have slightly elevated triglycerides. He will continue on current statin. He will work on dietary modifications Goal LDL is to remain below 100 (4) MDD (major depressive disorder), recurrent episode, mild: Code(s): F33.0 - Major depressive disorder, recurrent, mild Category: Medical Plan: Patient's PHQ-9 score 0, has been to health has been much better recently, patient not interested in any mental health medication more mental health therapy Orders: Orders Pneumococcal 20 Immunization 12/20/24 E78.2 - Mixed hyperlipidemia, Z23 - Encounter for immunization Comprehensive [place]. Panel Fast 12/20/24 I10 - Essential (primary) hypertension Complete Blood Count no Diff 12/20/24 I10 - Essential (primary) hypertension Lipid Panel 12/20/24 E78.2 - Mixed hyperlipidemia Medications: New losartan 50 mg PO DAILY 90 tabs 1RF 90 days I10 - Essential (primary) hypertension Discontinued losartan-hydrochlorothiazide 50-12.5 mg Discontinued Reason: Doctor's Order 1 tab PO DAILY 90 days 90 tabs 1RF I10 - Essential (primary) hypertension Patient Instructions: Goal: Blood pressure to be below 140/90 barriers: Adherence to physical activity and healthy eating habits
[2024-12-20 09:14] VITALS: BP 110/66; PULSE 75; TEMP 36.4; O2SAT 96; BMI 30.9
== END 2024-12-20 09:48 | disposition home or self-care (01) ==
PROVIDERS: PCP Physician Assistant; Visit Provider Physician Assistant
DX: Z00.00 Encounter for general adult medical examination without abnormal findings (principal); I10 Essential (primary) hypertension; E78.2 Mixed hyperlipidemia; F33.0 Major depressive disorder, recurrent, mild

== ENCOUNTER → 2024-12-20 08:45 | Outpatient (BNVA) | payer OTHER, SELFPAY | PROVIDERS: PCP Physician Assistant; Visit Provider Physician Assistant | DX: Z00.00 Encounter for general adult medical examination without abnormal findings (principal); Z23 Encounter for immunization; I10 Essential (primary) hypertension; E78.2 Mixed hyperlipidemia; F33.0 Major depressive disorder, recurrent, mild | CPT/HCPCS: 90471; 90677; 96127; 99396 ==

== ENCOUNTER 2025-02-13 07:42 | Outpatient (REF) | payer OTHER, SELFPAY ==
--- NOTE | ~2025-02-13 | US_ITS ---
CLINICAL HISTORY: N20.0 - Calculus of kidney US retroperitoneum Comparison: None Findings: Right kidney normal size and echotexture, 11.7cm length. No hydronephrosis. Normal color flow. A lower pole right renal cortical cyst measures 1.2 cm in diameter. A right renal upper pole cortical cyst measures 1.6 cm in diameter. A 5 mm echogenic focus in the upper pole is consistent with nonobstructing calculus. Left kidney normal size and echotexture, 11.3 cm in length. No hydronephrosis. Normal color flow. No cortical cysts are identified in the left kidney. No left kidney renal calculi are identified. Impression: Left kidney cortex benign simple cysts. Probable 5 mm left intrarenal calculus. Unremarkable right kidney This document has been electronically signed by: Akash Wright MD on 02/13/2025 16:57:01
== END 2025-02-13 07:43 | disposition home or self-care (01) ==
LOC: HO.US 07:42
PROVIDERS: PCP Physician Assistant; Visit Provider Urology
DX: N20.0 Calculus of kidney (principal)
CPT/HCPCS: 76775

== ENCOUNTER → 2025-02-13 07:44 | Outpatient (BNV) | payer OTHER, SELFPAY | PROVIDERS: PCP Physician Assistant; Visit Provider Radiology Diagnostic Radiology | DX: N28.1 Cyst of kidney, acquired (principal) | CPT/HCPCS: 76775 ==

== ENCOUNTER 2025-02-24 08:10 | Outpatient (AMB) | payer OTHER, SELFPAY ==
--- NOTE | 2025-02-24 08:28 | A.OFFVIS_ITS ---
Intake Visit Reasons: 1y/US Intake Note: Patient is Present for 1 year follow up/US Urology Medication: Sildenafil Antibiotic Allergies:None Blood Thinners:None Allergies No Known Allergies [No Known Allergies*] Allergy (Verified 02/24/25 08:32) HPI Comments Details: Juan C LALA is a very pleasant male. They are a patient of Dr. Soto. He is seen for the following urologic conditions. - prostatitis - nephrolithiasis - erectile dysfunction Twelve month follow-up No evidence of stones on imaging Refill sildenafil Prostatitis/CPPS: They present for further evaluation of chronic prostatitis No current treatment, previously on finasteride Testing included 05/06 PSA 1.2. 11/08 150 with prostatitis, 06/08 1.5, 03/09 1.7, 02/08 1.9, 11/12 1.3 Ca 10 Pain is present lower back. Prostatitis was diagnosed several months ago. Type of prostatitis II - chronic bacterial Nephrolithiasis Passage of stone 02/07 Imaging - 10/09 renal ultrasound no stones - 02/09 renal ultrasound no evidence of stones - 03/12 renal ultrasound possible small stone right side encourage fluid and lemon water Erectile dysfunction Progressive Good response to oral sildenafil Concomitant diagnosis includes hypertension, dyslipidemia PFSH Medical History Tubular adenoma COVID-19 vaccine series completed Elevated cholesterol HTN (hypertension) Chronic prostatitis Primary osteoarthritis of left shoulder Primary osteoarthritis, right shoulder Other chronic pain Skin lesion of back Surgical History Hx of colonoscopy Family History Father History of stomach cancer Mother HTN (hypertension) Diabetes mellitus Social History Housing: House Are you a primary care attendant to a significant other at home: No Do you presently have visiting nurse or other home services: No Alcohol intake: current Alcohol intake frequency: holidays/special occasions only Patient Tobacco Use Status: Never used Tobacco e-Cigarette/Vaping Use: Never Used Second Hand Smoke Exposure: No service: No Current occupational status: retired 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 Cognitive needs: No Hearing needs: No Vision needs: No Review of Systems Const Denies chills and Denies fever(s) Card Reports no additional complaints and Denies syncope Resp Denies cough GI Denies abdominal pain and Denies heartburn Reports as per HPI and Denies change in libido Neuro Denies syncope Psych Denies change in libido Endo Denies change in libido Physical Exam Const General: cooperative, healthy appearing, comfortable and no acute distress Orientation/consciousness: patient oriented x3 HEENT Face and sinus: Yes normal facial exam Mouth: moist mucous membranes Neck Neck: Yes normal visual inspection, Yes full ROM and Yes trachea midline Chest Chest palpation & inspection: normal inspection of the chest Resp Effort & Inspection: normal respiratory effort, able to speak in complete sentences and no respiratory distress GI Inspection: Yes normal to inspection Back/Spine/Pelvis Cervical Spine: normal cervical lordosis Thoracic/Lumbar Spine: thoracic and lumbar spine normal to inspection Skin General skin exam: no rashes or lesions noted Neuro General: patient oriented x3, gait normal, tone normal and moves all extremities Extrem General: Yes normal to inspection and Yes capillary refill normal Assessment & Plan Assessment & Plan (1) Chronic prostatitis: Code(s): N41.1 - Chronic prostatitis Category: Medical (2) Nephrolithiasis: Code(s): N20.0 - Calculus of kidney Category: Medical (3) Erectile dysfunction: Code(s): N52.9 - Male erectile dysfunction, unspecified Category: Medical Plan Twelve month follow-up Orders: Orders US renal BI 12 Months N20.0 - Calculus of kidney Medications: Refilled sildenafil BIN N Group [facility] [id number] 100 mg PO DAILY 30 days PRN 30 tabs 0RF sexual activity N52.9 - Male erectile dysfunction, unspecified Patient Instructions: This note is constructed using voice recognition software. While every effort has been made to ensure accuracy produce associate errors may have been included. Imaging studies, laboratory and physical exam results were discussed and reviewed in detail. No major barriers to patient understanding were identified. An opportunity to ask questions regarding the treatment plan was provided. All questions were answered. The patient expressed understanding and agreement with the above treatment plan. The patient is aware they should contact our office by phone for worsening of their current condition or the appearance of new urologic symptoms. Compliance is encouraged with any medications and followup testing that is ordered. It is a privilege to participate in the urologic care of your patient. If you have any questions or concerns regarding treatment for the above conditions, or other urologic issues, please do not hesitate to contact me. The office telephone contact is [phone]. Sincerely, Dr Pawel Fuller MD, [facility] - Urology Compassionate Specialist Care for the Genitourinary System Coding Level of Care Code Est Pt Level 4 (63387) Complex EM visit Add On G2211 Diagnoses Chronic prostatitis N41.1 Nephrolithiasis N20.0 Erectile dysfunction N52.9
== END 2025-02-24 09:03 | disposition home or self-care (01) ==
LOC: HO.HUSH 08:11
PROVIDERS: PCP Physician Assistant; Visit Provider Urology
DX: N41.1 Chronic prostatitis (principal); N20.0 Calculus of kidney; N52.9 Male erectile dysfunction, unspecified
CPT/HCPCS: 99214; G2211

== ENCOUNTER → 2025-02-24 08:10 | Outpatient (BNVA) | payer OTHER, SELFPAY | PROVIDERS: PCP Physician Assistant; Visit Provider Urology | DX: N41.1 Chronic prostatitis (principal); N20.0 Calculus of kidney; N52.9 Male erectile dysfunction, unspecified | CPT/HCPCS: 99212 ==

== ENCOUNTER 2025-06-22 08:13 | Outpatient (AMB) | payer OTHER, SELFPAY ==
--- NOTE | 2025-06-22 08:21 | MHC.PC.OV ---
Vital Signs 06/22/25 08:22 Height 5 ft 11 in Weight 217 lb 8 oz BMI 30.3 BP 130/68 Blood Pressure Location Lt brachial Position Sitting Pulse 65 Pulse Source Pulse Oximeter Temp 97.1 F Temp Source Temporal Artery Scan Pulse Oximetry (%) 96 Oxygen Delivery Method Room Air Intake Visit Reasons: f/u HTN/ HLD Intake Note: Patient is here to follow up on HLD, HTN. Plant Maintenance Manager Required: No Graphic Arts Instructor: Not Required per policy Accompanied by: Self / Same As Patient Allergies No Known Allergies (No Known Allergies*) Allergy (Verified 06/22/25 08:35) Medication List - Last Reconciled 06/22/25 by Ronni Soto PA-C losartan 50 mg PO DAILY 90 days pantoprazole 20 mg PO DAILY sildenafil 100 mg PO DAILY PRN 30 days simvastatin 40 mg PO QPM 90 days Tobacco use date assessed: 06/22/25 Fall risk assessment: No Falls in past year Last assessed Fall Risk: 06/22/25 Dental Screening Dental Screen Date: 12/20/24 HPI f/u HTN/ HLD HPI Details Patient is a 64-year-old male here today for follow-up visit ? Patient has a past medical history significant for ? Hypertension, hyperlipidemia, recurrent prostatitis , lumbar spondylosis Concern--> The patient reports left knee pain, particularly in the morning, with a palpable bump that was previously evaluated with an ultrasound and x-ray, revealing mild degenerative changes. The pain has been persistent, and he is considering further evaluation by a general surgeon or through an ultrasound to determine the nature of the mass.. ,, ?hypertension: Blood pressure on acceptable today in office. He denies any particular fatigue, dizziness or syncopal episodes. He does check his blood pressure at home and does report consistent readings of 140 systolic. Otherwise denies any headaches, chest pains, shortness of breath. .. ? Hyperlipidemia: lipid panels have been stable, has no side effect from statin therapy.? Will continue to follow lipid panel. [facility] Medical History Tubular adenoma COVID-19 vaccine series completed Elevated cholesterol HTN (hypertension) Chronic prostatitis Primary osteoarthritis of left shoulder Primary osteoarthritis, right shoulder Other chronic pain Skin lesion of back Surgical History Hx of colonoscopy Family History Father History of stomach cancer Mother HTN (hypertension) Diabetes mellitus Social History Housing: House Are you a primary primary care nurse practitioner to a significant other at home: No Do you presently have visiting nurse or other home services: No Alcohol intake: current Alcohol intake frequency: holidays/special occasions only Patient Tobacco Use Status: Never used Tobacco e-Cigarette/Vaping Use: Never Used Second Hand Smoke Exposure: No service: No Current occupational status: retired 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 Cognitive needs: No Hearing needs: No Vision needs: No Questionnaire PHQ-9 Over the last 2 weeks, how often have you been bothered by any of the following problems? 1. Little interest or pleasure in doing things: not at all 2. Feeling down, depressed, or hopeless: not at all 3. Trouble falling or staying asleep, or sleeping too much: not at all 4. Feeling tired or having little energy: not at all 5. Poor appetite or overeating: not at all 6. Feeling bad about yourself - or that you are a failure or have let yourself or your family down: not at all 7. Trouble concentrating on things, such as reading the newspaper or watching television: not at all 8. Moving or speaking so slowly that other people could have noticed. Or the opposite - being so fidgety or restless that you have been moving around a lot more than usual: not at all 9. Thoughts that you would be better off or of hurting yourself in some way: not at all Total score: 0 Depression Screening Interpretation: Negative Depression Screening Done: Yes 14915 - PHQ-9 Billing: Yes Source: Developed by Drs. Chris Mejia, Lisa Cottrell, El Conley and colleagues, with an educational chris from [employer]. Thrive Questionnaire Date Thrive assessed: 12/20/24 I am a: Patient What is your living situation today?: I have a steady place to live Within the past 12 months, did the food you bought not last and you didn't have the money to get more?: I choose not to answer this question Within the past 12 months, did you worry whether your food would run out before you got money to buy more?: I choose not to answer this question Do you have trouble paying for medicines?: I choose not to answer this question Do you have trouble getting transportation to medical appointments?: No Do you have trouble paying your heating and electricity bill?: I choose not to answer this question Do you have trouble taking care of your child, family member or friend?: No Do you have trouble with day-to-day activities such as bathing, preparing meals, shopping, managing finances, etc.?: I choose not to answer this question Are you currently unemployed and looking for a job?: I choose not to answer this question Are you interested in more education?: I choose not to answer this question Please select the resources that you would like help with: None Currently or been in a relationship where the following occur: I choose not to answer THRIVE Score: 0 YOUSUF-7 AMB Questionnaire YOUSUF-7 Date YOUSUF - 7 assessed: 12/20/24 Source: Developed by Drs. Chris Mejia, iLsa Cottrell, El Conley and colleagues, with an educational chris from [employer]. Physical exam (Primary Care) Vital Signs: Last Vital Signs Temp 97.1 F 06/22/25 08:22 Pulse 65 06/22/25 08:22 BP 130/68 06/22/25 08:22 Pulse Ox 96 06/22/25 08:22 Oxygen Delivery Method Room Air 06/22/25 08:22 BMI result Body Mass Index 30.3 Tobacco/Smoking Status: Tobacco use Status Tobacco use date assessed 06/22/25 06/22/25 08:28 Patient Tobacco Use Status Never used Tobacco 06/22/25 08:28 e-Cigarette/Vaping Use Never Used 06/22/25 08:28 PHQ-9: PHQ-9 Score PHQ-9: Total score 0 06/22/25 08:28 Depression Screening Interpretation: Negative Thrive Assessment: Date of Thrive Assessment Date Thrive assessed 12/20/24 06/22/25 08:28 Currently or been in a relationship where the following occur: I choose not to answer Extrem Knee images:  1. SMALL MOBILE SOFT MASS NOTED AT THE PROXIMAL ANTERIOR LATERAL EDGE OF THE TIBIAL REGION Coding Level of Care Code Est Pt Level 4 (03619) Diagnoses Essential hypertension I10 Hypertension type: essential hypertension Mass of left lower leg R22.42 Mixed hyperlipidemia E78.2 Hyperlipidemia type: mixed hyperlipidemia Additional Codes PHQ-9 - 84573 - PHQ-9 Billing: Yes ([id number]) Assessment & Plan Assessment & Plan (1) HTN (hypertension): Code(s): I10 - Essential (primary) hypertension Category: Medical Qualifiers: Hypertension type: essential hypertension Qualified Code(s): I10 - Essential (primary) hypertension Plan: Patient's blood pressure much lower now . He denies any symptoms of dizziness or fatigue.. He does report at a pressures are 110 systolic.. Discontinue hydrochlorothiazide. Continue losartan 50. Goal blood pressures to be below 140/90. (2) Mass of left lower leg: Code(s): R22.42 - Localized swelling, mass and lump, left lower limb Category: Medical Plan: The patient reports persistent left knee pain with a palpable bump, previously evaluated with imaging showing mild degenerative changes. An ultrasound will be ordered to further assess the mass, and a referral to a general surgeon is planned for potential removal. (3) HLD (hyperlipidemia): Code(s): E78.5 - Hyperlipidemia, unspecified Category: Medical Qualifiers: Hyperlipidemia type: mixed hyperlipidemia Qualified Code(s): E78.2 - Mixed hyperlipidemia Plan: recent labs showing great control of his total cholesterol and LDL. Does have slightly elevated triglycerides. He will continue on current statin. He will work on dietary modifications Goal LDL is to remain below 100 Orders: Orders Comprehensive [place]. Panel Fast Today I10 - Essential (primary) hypertension Lipid Panel Today E78.2 - Mixed hyperlipidemia US Extremity Nonvas Limited LT Today R22.42 - Localized swelling, mass and lump, left lower limb Prostate Specific Antigen Scr Today N41.1 - Chronic prostatitis, Z12.5 - Encounter for screening for malignant neoplasm of prostate Complete Blood Count no Diff Today I10 - Essential (primary) hypertension Referrals General Surgery Referral R22.42 - Localized swelling, mass and lump, left lower limb Medications: Refilled losartan 50 mg PO DAILY 90 tabs 1RF 90 days I10 - Essential (primary) hypertension simvastatin 40 mg PO QPM 90 tabs 2RF 90 days E78.2 - Mixed hyperlipidemia pantoprazole 20 mg PO DAILY 90 tabs 3RF
[2025-06-22 08:22] VITALS: BP 130/68; PULSE 65; TEMP 36.2; O2SAT 96; BMI 30.3
--- OUTSIDE RECORDS SUMMARY | 2025-06-22 08:31 | XMS_ITS | Patient Health Record ---
Author Organization [facility] Address [address] [place] [address] Care Team Providers Care Stamping Die Maker Name Role Phone Constanza MENDOZA, Swapna Primary Care Provider Dakota Grant Jr Unavailable [phone] Reason For Referral No Information Medications Medication SIG (Take, Route, Fr equency, Duration) Notes Start Date End Date Status Golytely 236 GM as directed before c olonoscopy Orally every 15 minutes for 1 day(s) 2011 Active Aspir-81 Active Simvastatin Active Social History Tobacco Use: Social History Observation Description Date Details (start date - stop date) Never Smoker NA - NA Tobacco Use/Smoking Question Answer Notes Patient is a nonsmoker Alcohol Screen Question Answer Notes Did you have a drink contain ing alcohol in the past year? Yes Points 2 Interpretation Negative How often did you have a dri nk containing alcohol in the past year? 2 to 4 times a month (2 points) Section Notes: Tobacco use is negative. Alc ohol use is on the weekends. Problems Problem Type SNOMED Code ICD Code Onset Dates Problem Status W/U Status Risk Notes Problem Diverticulosis of colon (finding) (609269965) Diverticulosis of colon (without mention of hemorrhage) (562.10) Active confirmed Problem Right lower quadrant pain (365550872) Abdominal pain, right lower quadrant (789.03) Active confirmed Problem Screening for malignant neoplasm of colon (245970781) Special screening for malignant neoplasms, colon (V76.51) Active confirmed Plan Of Treatment Future Test Test Name Order Date COLONOSCOPY 2011 Insurance Providers Payer Name Payer Address Payer Phone Subscriber Number Group Number Insured Name Patient Relationship to Insured Coverage Start Date Coverage End Date [facility] [address] [place] [address] [id number] [id number] LALA Self - patient is the insured Medical (General) History Medical History History ICD Code elevated cholesterol nephrolithiasis
== END 2025-06-22 08:43 | disposition home or self-care (01) ==
LOC: HO.HMCH 08:14
PROVIDERS: PCP Physician Assistant; Visit Provider Physician Assistant
DX: I10 Essential (primary) hypertension (principal); R22.42 Localized swelling, mass and lump, left lower limb; E78.2 Mixed hyperlipidemia

== ENCOUNTER → 2025-06-22 08:13 | Outpatient (BNVA) | payer OTHER, SELFPAY | PROVIDERS: PCP Physician Assistant; Visit Provider Physician Assistant | DX: I10 Essential (primary) hypertension (principal); E78.2 Mixed hyperlipidemia; R22.42 Localized swelling, mass and lump, left lower limb; M25.562 Pain in left knee; N41.1 Chronic prostatitis | CPT/HCPCS: 96127; 99212 ==

== ENCOUNTER 2025-07-25 10:20 | Outpatient (AMB) | payer OTHER, SELFPAY ==
--- NOTE | 2025-07-25 10:25 | MHC.OFFVIS ---
Vital Signs 07/25/25 10:27 Height 5 ft 11 in Weight 218 lb BMI 30.4 BP 164/83 H Blood Pressure Location Lt brachial Position Sitting Pulse 72 Intake Visit Reasons: Mass noted over left lower extremity Intake Note: Patient is seen in office for evaluation of a mass of the left lower leg. Pt c/o: onset for yrs, minimal increase, admits to pain, denies discharge or other concerns us sched:08/11/25 Cafeteria Clerk Required: No Accompanied by: Self / Same As Patient Allergies No Known Allergies (No Known Allergies*) Allergy (Verified 07/25/25 10:26) Medication List - Last Reconciled 07/25/25 by Kevin Long MD losartan 50 mg PO DAILY 90 days pantoprazole 20 mg PO DAILY sildenafil 100 mg PO DAILY PRN 30 days simvastatin 40 mg PO QPM 90 days HPI Comments Details: 64-year-old male patient presenting for evaluation of a lump located in the left leg below the knee. This has been present for many years and has not changed significantly in size or shape however now has become more painful. [place] knees has resulted in increased pain at this location. He denies any redness, bleeding or discharge. He is scheduled for an ultrasound of the site on 08/11/2025. He would like to have the lesion removed if possible. [facility] Medical History Tubular adenoma COVID-19 vaccine series completed Elevated cholesterol HTN (hypertension) Chronic prostatitis Primary osteoarthritis of left shoulder Primary osteoarthritis, right shoulder Other chronic pain Skin lesion of back Surgical History Hx of colonoscopy Family History Father History of stomach cancer Mother HTN (hypertension) Diabetes mellitus Social History Housing: House Are you a primary patient care secretary to a significant other at home: No Do you presently have visiting nurse or other home services: No Alcohol intake: current Alcohol intake frequency: holidays/special occasions only Patient Tobacco Use Status: Never used Tobacco e-Cigarette/Vaping Use: Never Used Second Hand Smoke Exposure: No service: No Current occupational status: retired 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 Cognitive needs: No Hearing needs: No Vision needs: No Review of Systems Const All systems reviewed & are unremarkable except as noted in HPI and below Physical Exam Const General: cooperative and no acute distress Nutritional Appearance: well nourished Orientation/consciousness: patient oriented x3 Limitations: no limitations HEENT Head: Yes normocephalic and Yes atraumatic Ears: hearing grossly normal bilaterally Resp Effort & Inspection: normal respiratory effort, no audible wheezes, no cough and no respiratory distress Cardio Jugular venous distension: no JVD GI Inspection: Yes normal to inspection Skin Other: Warm, dry, no rash Neuro General: patient oriented x3 Extrem Other: 1 cm soft tissue mass which appears to be connected to the dermis, tender to palpation but no evidence of infection/abscess. Findings suggestive of an epidermal inclusion cyst verses varix. General: Yes no clubbing, cyanosis or edema Knee images:  1. 1 cm dermal lesion left knee Assessment & Plan Assessment & Plan (1) Mass of left lower leg: Code(s): R22.42 - Localized swelling, mass and lump, left lower limb Category: Medical Plan 64-year-old male patient presenting with a soft tissue mass located below the left knee on the lateral anterior surface which is now becomes symptomatic. Patient has requested excision of this lesion. As he is scheduled for an ultrasound of the lesion in several weeks I recommended he return following this to review the results and discuss treatment options. He expressed understanding and agrees with the plan. Coding Level of Care Code New Pt Level 4 (60827) Diagnoses Mass of left lower leg R22.42
[2025-07-25 10:27] VITALS: BP 164/83; PULSE 72; BMI 30.4
--- OUTSIDE RECORDS SUMMARY | 2025-07-25 12:23 | XMS_ITS | Patient Health Record ---
Author Organization [facility] Address [address] [place] [address] Care Team Providers Care Print Decorator Name Role Phone Constanza MENDOZA, Swapna Primary Care Provider Dakota Grant Jr Unavailable Reason For Referral No Information Medications Medication [...] Risk Notes Problem Diverticulosis of colon (finding) (268177914) Diverticulosis of colon (without mention of hemorrhage) (562.10) Active confirmed Problem Right lower quadrant pain (624790206) Abdominal pain, right lower quadrant (789.03) Active confirmed Problem Screening for malignant neoplasm of colon (499577040) Special screening for malignant neoplasms, colon (V76.51) Active confirmed Plan Of Treatment Future Test Test Name Order Date COLONOSCOPY 2011 Insurance Providers Payer Name Payer Address Payer Phone Subscriber Number Group Number Insured Name Patient Relationship to Insured Coverage Start Date Coverage End Date [facility] [address] [place] [address] [id number] [id number] LALA Self - patient is the insured Medical (General) History Medical History History ICD Code elevated cholesterol nephrolithiasis
== END 2025-07-25 10:43 | disposition home or self-care (01) ==
LOC: HO.HGS 10:21
PROVIDERS: PCP Physician Assistant; Visit Provider Surgery
DX: R22.42 Localized swelling, mass and lump, left lower limb (principal)
CPT/HCPCS: 99204

== ENCOUNTER → 2025-07-25 10:20 | Outpatient (BNVA) | payer OTHER, SELFPAY | PROVIDERS: PCP Physician Assistant; Visit Provider Surgery | DX: R22.42 Localized swelling, mass and lump, left lower limb (principal) | CPT/HCPCS: 99202 ==

== ENCOUNTER 2025-08-11 10:16 | Outpatient (REF) | payer OTHER, SELFPAY ==
--- NOTE | ~2025-08-11 | US_ITS ---
Examination: US Extremity Nonvas Limited Lt Indication: R22.42 - Localized swelling, mass and lump, left lower limb, soft mobile tender mass over proximal anterior left tibia, present for several years, recently becoming painful Prior: None TECHNIQUE: Grayscale and color Doppler imaging was performed in the region of a mass anterior to the left tibia. FINDINGS: There is a mass in the deep subcutaneous soft tissues that measures 10 x 4 x 10 mm. It is mostly hypoechoic with an eccentric area that is more hyperechogenic. On color Doppler, there is blood flow along the deep central margin. The technologist's report states that the area was tender to touch. No other abnormality is noted. US/US Extremity Nonvas Limited LT IMPRESSION: There is a solid mass in the deep subcutaneous soft tissues anterior to the left tibia. Ultrasound appearance is nonspecific, but could it represent a lymph node. If further radiologic evaluation is desired, consider MRI without and with IV contrast. Electronically signed by: Cisco Perez MD 08/11/2025 10:41 AM EDT
--- OUTSIDE RECORDS SUMMARY | 2025-08-11 11:42 | XMS_ITS | Patient Health Record ---
Author Organization [facility] Address [address] [place] [address] Care Team Providers Care Motorcycle Mechanic Apprentice Name Role Phone Constanza MENDOZA, Swapna Primary Care Provider Dakota Grant Jr Reason For Referral No Information Medications Medication SIG (Take, Route, Fr equency, Duration) Notes Start Date End Date Status Golytely 236 GM as directed before c olonoscopy Orally every 15 minutes; Duration: 1 day(s) 2011 Active Aspir-81 Active Simvastatin [...] Risk Notes Problem Diverticulosis of colon (finding) (851245300) Diverticulosis of colon (without mention of hemorrhage) (562.10) Active confirmed Problem Right lower quadrant pain (297919580) Abdominal pain, right lower quadrant (789.03) Active confirmed Problem Screening for malignant neoplasm of colon (227113255) Special screening for malignant neoplasms, colon (V76.51) Active confirmed Plan Of Treatment Future Test Test Name Order Date COLONOSCOPY 2011 Insurance Providers Payer Name Payer Address Payer Phone Subscriber Number Group Number Insured Name Patient Relationship to Insured Coverage Start Date Coverage End Date [facility] [address] [place] [address] [id number] KOBE LALA Self - patient is the insured Medical (General) History Medical History History ICD Code elevated cholesterol nephrolithiasis
== END 2025-08-11 10:17 | disposition home or self-care (01) ==
LOC: HO.HMGCX 10:16
PROVIDERS: PCP Physician Assistant; Visit Provider Physician Assistant
DX: R22.42 Localized swelling, mass and lump, left lower limb (principal)
CPT/HCPCS: 76882

== ENCOUNTER → 2025-08-11 10:18 | Outpatient (BNV) | payer OTHER, SELFPAY | PROVIDERS: PCP Physician Assistant; Visit Provider Radiology Diagnostic Radiology | DX: R22.42 Localized swelling, mass and lump, left lower limb (principal) | CPT/HCPCS: 76882 ==

== ENCOUNTER 2025-08-18 11:02 | Outpatient (AMB) | payer OTHER, SELFPAY ==
--- NOTE | 2025-08-18 11:09 | A.OFFVIS_ITS ---
Vital Signs 08/18/25 11:17 Height 5 ft 11 in Weight 216 lb BMI 30.1 BP 130/78 Blood Pressure Location Rt brachial Position Sitting Pulse 81 Intake Visit Reasons: s/p US for Mass noted over left lower extremity Intake Note: Patient here for follow up mass located below the left knee on the lateral anterior surface. Patient c/o: no concerns. Reports no changes. Lt lower extremity US: 08-11-2025 Border Inspector Required: No Accompanied by: Self / Same As Patient Allergies No Known Allergies (No Known Allergies*) Allergy (Verified 08/18/25 11:17) HPI HPI s/p US for Mass noted over left lower extremity: Details: Mr. Guidry is here for follow up regarding his left lower leg soft tissue mass. He was seen in the office for evaluation of the area due to increasing pain. There was concern that is was a possible varices and therefore US of the mass was obtained to further evaluate this. Today, he reports continued pain and sensitivity of the area. He would like it excised. [facility] Medical History Tubular adenoma COVID-19 vaccine series completed Elevated cholesterol HTN (hypertension) Chronic prostatitis Primary osteoarthritis of left shoulder Primary osteoarthritis, right shoulder Other chronic pain Skin lesion of back Surgical History Hx of colonoscopy Family History Father History of stomach cancer Mother HTN (hypertension) Diabetes mellitus Social History Housing: House Are you a primary resident care aide to a significant other at home: No Do you presently have visiting nurse or other home services: No Alcohol intake: current Alcohol intake frequency: holidays/special occasions only Patient Tobacco Use Status: Never used Tobacco e-Cigarette/Vaping Use: Never Used Second Hand Smoke Exposure: No service: No Current occupational status: retired 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 Cognitive needs: No Hearing needs: No Vision needs: No Review of Systems Const Denies chills and Denies fever(s) ENT Denies dizziness Card Denies dyspnea Resp Denies dyspnea Skin/Breast Reports as per HPI and Denies rash Neuro Denies dizziness Physical Exam Vital Signs: Last Vital Signs Pulse 81 08/18/25 11:17 BP 130/78 08/18/25 11:17 BMI result Body Mass Index 30.1 Const General: comfortable, no acute distress and alert Resp Effort & Inspection: normal respiratory effort Extrem Other: left lower extremity - small 1cm round, mobile, soft mass of the subcutaneous tissue just lateral to tibial tuberosity, tender to palpation, no surrounding skin changes Results Reviewed Results Reviewed: LLE US: There is a mass in the deep subcutaneous soft tissues that measures 10 x 4 x 10 mm. It is mostly hypoechoic with an eccentric area that is more hyperechogenic. On color Doppler, there is blood flow along the deep central margin. The technologist's report states that the area was tender to touch. No other abnormality is noted. Assessment & Plan Assessment & Plan (1) Mass of left lower leg: Code(s): R22.42 - Localized swelling, mass and lump, left lower limb Category: Medical Plan 64 year old male with painful left lower extremity soft tissue mass. US of the mass showed solid mass in the deep subcutaneous soft tissues anterior to the left tibia, nonspecific appearance. He reports continued pain and would like to proceed with excision. This can be done in the office with local anesthesia. He can schedule this at his own convenience. He is to call the office if he develops concerns. Coding Level of Care Code Est Pt Level 3 (68263) Diagnoses Mass of left lower leg R22.42
[2025-08-18 11:17] VITALS: BP 130/78; PULSE 81; BMI 30.1
--- OUTSIDE RECORDS SUMMARY | 2025-08-18 12:38 | XMS_ITS | Patient Health Record ---
Author Organization [facility] Address [address] [place] [address] Care Team Providers Care Rivet Bucker Name Role Phone Constanza MENDOZA, Swapna Primary Care Provider Dakota Grant Jr [phone] Reason For Referral No Information Medications Medication [...] Risk Notes Problem Diverticulosis of colon (finding) (367439477) Diverticulosis of colon (without mention of hemorrhage) (562.10) Active confirmed Problem Right lower quadrant pain (394872219) Abdominal pain, right lower quadrant (789.03) Active confirmed Problem Screening for malignant neoplasm of colon (483483019) Special screening for malignant neoplasms, colon (V76.51) Active confirmed Plan Of Treatment Future Test Test Name Order Date COLONOSCOPY 2011 Insurance Providers Payer Name Payer Address Payer Phone Subscriber Number Group Number Insured Name Patient Relationship to Insured Coverage Start Date Coverage End Date [facility] [address] [place] [address] [id number] LALA Self - patient is the insured Medical (General) History Medical History History ICD Code elevated cholesterol nephrolithiasis
== END 2025-08-18 11:32 | disposition home or self-care (01) ==
LOC: HO.HGS 11:03
PROVIDERS: PCP Physician Assistant; Visit Provider Physician Assistant Surgical
DX: R22.42 Localized swelling, mass and lump, left lower limb (principal)
CPT/HCPCS: 99213

== ENCOUNTER → 2025-08-18 11:02 | Outpatient (BNVA) | payer OTHER, SELFPAY | PROVIDERS: PCP Physician Assistant; Visit Provider Physician Assistant Surgical | DX: R22.42 Localized swelling, mass and lump, left lower limb (principal) | CPT/HCPCS: 99212 ==

== ENCOUNTER 2025-09-26 10:35 | Outpatient (AMB) | payer OTHER, SELFPAY ==
[2025-09-26 11:24] VITALS: BP 128/72; BMI 29.8
--- NOTE | 2025-09-26 11:24 | A.OFFVIS_ITS ---
Vital Signs 3 09/26/25 11:24 Height 5 ft 11 in Weight 213 lb 13.574 oz BMI 29.8 BP 128/72 Blood Pressure Location Lt brachial Position Sitting Intake Visit Reasons: excision Mass noted over left lower extremity Intake Note: Patient is seen for office procedure: Excision of mass located below the left knee on the lateral anterior surface. Pt c/o: no changes here for excision of mass s/p:10/03/25 @11:30am with Valentin Prototype Machine Operator Required: No Accompanied by: Self / Same As Patient Allergies No Known Allergies (No Known Allergies*) Allergy (Verified 09/26/25 11:25) Medication List - Last Reconciled 09/29/25 by Kevin Long MD losartan 50 mg PO DAILY 90 days pantoprazole 20 mg PO DAILY sildenafil 100 mg PO DAILY PRN 30 days simvastatin 40 mg PO QPM 90 days HPI Comments Details: Patient returns today for excision of a subcutaneous lesion below the left knee which by ultrasound was not determined to be a varix. He denies any new symptoms but does report tenderness to palpation. [facility] Medical History Tubular adenoma COVID-19 vaccine series completed Elevated cholesterol HTN (hypertension) Chronic prostatitis Primary osteoarthritis of left shoulder Primary osteoarthritis, right shoulder Other chronic pain Skin lesion of back Surgical History Hx of colonoscopy Family History Father History of stomach cancer Mother HTN (hypertension) Diabetes mellitus Social History Housing: House Are you a primary day care provider to a significant other at home: No Do you presently have visiting nurse or other home services: No Alcohol intake: current Alcohol intake frequency: holidays/special occasions only Patient Tobacco Use Status: Never used Tobacco e-Cigarette/Vaping Use: Never Used Second Hand Smoke Exposure: No service: No Current occupational status: retired 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 Cognitive needs: No Hearing needs: No Vision needs: No Physical Exam Vital Signs: Last Vital Signs BP 128/72 09/26/25 11:24 BMI result Body Mass Index 29.8 Extrem Knee images: 2 1. Lesion below left knee with a bluish discoloration, tender to palpation approximately 1.5 cm in diameter. Office Procedures Excision Details: Preoperative diagnosis: Subcutaneous lesion left leg Postoperative diagnosis: Same Procedure: Excision of subcutaneous lesion left leg Surgeon: Kevin Long MD Breaker Up: None Anesthesia: Lidocaine 1% with epinephrine Indications for procedure: Painful subcutaneous lesion left leg below the knee measuring 1.5 cm Operative findings: Vascular appearing lesion left leg below the left knee measuring 1.5 cm in diameter Specimen: Subcutaneous lesion left leg Estimated blood loss: 5 mL Complications: None Procedure details: Patient was brought to the procedure room and placed in a supine position. After confirming the site of procedure in the left leg, and assuring informed consent, the skin was prepped with Betadine and draped in a sterile fashion. Local anesthesia was then infiltrated over the lesion. An oblique incision was then created along Vida's lines in the incision carried down into the subcutaneous tissue up to the subcutaneous lesion. Combination of sharp Metzenbaum scissor dissection and blunt dissection with a hemostat was used to dissect the lesion from the surrounding subcutaneous tissue. The lesion was then removed and sent to pathology for further examination. Skin was then closed using interrupted 3-0 nylon sutures. Sterile dressings consisting of 2 x 2 gauze and Tegaderm were then applied. The patient tolerated the procedure well. He was discharged to home in stable condition. 50539-cqsaa/arms/legs 1.1-2cm Procedure code (CPT) selection complete Assessment & Plan Assessment & Plan (1) Mass of left lower leg: Code(s): R22.42 - Localized swelling, mass and lump, left lower limb Category: Medical Plan Patient tolerated the procedure well and was instructed on local wound care. He will return in 1 week for suture removal. Orders: Orders 2 Surgical 09/26/25 R22.42 - Localized swelling, mass and lump, left lower limb Coding Level of Care Code Procedure Only Diagnoses Mass of left lower leg R22.42 CPT Codes Trunk/Arms/Legs - CPT: 81166-pzoze/arms/legs 1.1-2cm ([id number])
== END 2025-09-26 12:15 | disposition home or self-care (01) ==
LOC: HO.HGS 10:36
PROVIDERS: PCP Physician Assistant; Visit Provider Surgery
DX: R22.42 Localized swelling, mass and lump, left lower limb (principal); D18.01 Hemangioma of skin and subcutaneous tissue
CPT/HCPCS: 11402

== ENCOUNTER 2025-09-26 10:35 | Outpatient (REF) | payer OTHER, SELFPAY | END 2025-09-26 10:36 | disposition home or self-care (01) | LOC: HO.LNP 10:35 | PROVIDERS: PCP Physician Assistant; Visit Provider Surgery | DX: D18.01 Hemangioma of skin and subcutaneous tissue (principal) | CPT/HCPCS: 11402; 88305 ==

== ENCOUNTER 2025-10-03 11:08 | Outpatient (AMB) | payer OTHER, SELFPAY ==
[2025-10-03 11:13] VITALS: BMI 29.8
--- NOTE | 2025-10-03 11:13 | A.OFFVIS_ITS ---
Vital Signs 3 10/03/25 11:13 Height 5 ft 11 in Weight 213 lb 13.574 oz BMI 29.8 Intake Visit Reasons: s/p excision mass 09/26/25 Intake Note: Patient presents for suture removal status post excision mass left lower leg. Pt c/o; reports no complaints at this time. Bottom Loader Required: No Accompanied by: Self / Same As Patient Allergies No Known Allergies (No Known Allergies*) Allergy (Verified 10/03/25 11:16) HPI HPI s/p excision mass 09/26/25: Details: He has no complaints. Denies pain. Denies bleeding. Denies fevers or chills. [facility] Medical History Tubular adenoma COVID-19 vaccine series completed Elevated cholesterol HTN (hypertension) Chronic prostatitis Primary osteoarthritis of left shoulder Primary osteoarthritis, right shoulder Other chronic pain Skin lesion of back Surgical History (Updated 10/04/25 @ 12:18 by Valentin Ngo PA-C) History of excision of mass (~09/26/25) Hx of colonoscopy Family History Father History of stomach cancer Mother HTN (hypertension) Diabetes mellitus Social History Housing: House Are you a primary care tech to a significant other at home: No Do you presently have visiting nurse or other home services: No Alcohol intake: current Alcohol intake frequency: holidays/special occasions only Patient Tobacco Use Status: Never used Tobacco e-Cigarette/Vaping Use: Never Used Second Hand Smoke Exposure: No service: No Current occupational status: retired 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 Cognitive needs: No Hearing needs: No Vision needs: No Physical Exam Vital Signs: BMI result Body Mass Index 29.8 Const General: comfortable and no acute distress Orientation/consciousness: patient oriented x3 Resp Effort & Inspection: normal respiratory effort and able to speak in complete sentences Neuro General: patient oriented x3 Extrem Knee images: 2 1. 2 cm excision site. Well healed, sutures in place. Clean and dry. No drainage, no erythema Assessment & Plan Assessment & Plan (1) History of excision of mass: Onset Date: ~09/26/25 Comment: office procedure: Mass of left lower leg- Dr. Mercedes MENDOZA FACS Code(s): Z98.890 - Other specified postprocedural states Category: Medical Plan 64-year-old male s/p he excision of the lower leg lesion on 09/26/[address] Long returning to the office for wound check, suture removal. He has no complaints. Denies bleeding from the incision site. Denies any tenderness. We reviewed pathology report showing hemangioma with abutting margins. We did discuss the possibility that this may return. In which we would reexcised with wider margins. But for now we will observe. On exam the wound appears to be healing well sutures were in place, incision was clean and dry there was no evidence suggestive of infection. Sutures were removed in office without complication. The wound remained intact. Patient can follow up as needed with any concerns in the future. Indicates that this does recur we will likely plan to re-excise with wider margins. Coding Level of Care Code Est Pt Level 4 (36896) Diagnoses History of excision of mass Z98.890
--- OUTSIDE RECORDS SUMMARY | 2025-10-03 14:44 | XMS_ITS | Patient Health Record ---
Author Organization [facility] Address [address] [place] [address] Care Team Providers Care Cafeteria Clerk Name Role Phone Constanza MENDOZA, Swapna Primary Care Provider Dakota Grant Jr Reason For Referral No Information Medications Medication SIG (Take, Route, Frequency, Duration) Notes Start Date End Date Status Golytely 236 GM Solution Reconstituted as directed before colonoscopy Orally every 15 minutes; Duration: 1 day(s) 2011 Active Aspir-81 Active Simvastatin Active Social History Tobacco Use: Social History Observation Description Date Details (start date - stop date) Never Smoker NA - NA Social History Drugs/Alcohol: Social Info Question Answer Notes Alcohol Screen Did you have a drink containing alcohol in the past year? Yes Points 2 Interpretation Negative How often did you have a drink containing alcohol in the past year? 2 to 4 times a month (2 points) Tobacco Use: Social Info Question Answer Notes Tobacco Use/Smoking Patient is a nonsmoker Section Notes: Tobacco use is negative. Alc ohol use is on the weekends. Problems Problem Type SNOMED Code ICD Code Onset Dates Problem Status W/U Status Risk Notes Problem Diverticulosis of colon (finding) (679821363) Diverticulosis of colon (without mention of hemorrhage) (562.10) Active confirmed Problem Right lower quadrant pain (223672663) Abdominal pain, right lower quadrant (789.03) Active confirmed Problem Screening for malignant neoplasm of colon (830010975) Special screening for malignant neoplasms, colon (V76.51) Active confirmed Plan Of Treatment Future Test Test Name Order Date COLONOSCOPY 2011 Insurance Providers Payer Name Payer Address Payer Phone Subscriber Number Group Number Insured Name Patient Relationship to Insured Coverage Start Date Coverage End Date [facility] [address] [place] [phone] [id number] LALA Self - patient is the insured Medical (General) History Medical History History ICD Code elevated cholesterol nephrolithiasis
== END 2025-10-03 12:04 | disposition home or self-care (01) ==
LOC: HO.HGS 11:09
PROVIDERS: PCP Physician Assistant
DX: Z98.890 Other specified postprocedural states (principal)
CPT/HCPCS: 99024

== ENCOUNTER → 2025-10-03 11:08 | Outpatient (BNVA) | payer OTHER, SELFPAY | PROVIDERS: PCP Physician Assistant | DX: Z48.02 Encounter for removal of sutures (principal); Z98.890 Other specified postprocedural states | CPT/HCPCS: 99212 ==